=== PATIENT | female | born 1945 | race American Indian/Alaskan Native ===

== ENCOUNTER 2019-11-26 17:12 | Inpatient (IN) | payer MEDICARE ==
--- NOTE | 2019-11-26 18:44 | Emergency Department Report ---
- General Chief complaint: Weakness Stated complaint: GENERAL WEAKNESS POSS COVID EXPOSURE PUI?: Yes Time Seen by Provider: 11/26/19 18:20 Source: patient, family (son Thiago Lomeli), EMS Mode of arrival: Stretcher Limitations: Altered Mental Status - History of Present Illness Initial comments: This is a 74-year-old female with history of hypertension and diabetes mellitus who presents with altered mental status, shortness of breath, fever chills, body aches. Patient arrived via EMS. Her son Thiago Lomeli gave additional history. Her son called 911 after finding his mother incoherent. She appeared to have trouble breathing. He was very concerned when she answered the door without having on any clothes. Patient states that she has had subjective fever chills body aches shortness of breath sore throat for the past 1 to 2 days. She explained that her sister was recently tested positive for COVID-19. However her son was unable to confirm this information. She denies cough. She denies shortness of breath. Overall she feels generally unwell. MD Complaint: generalized weakness -: Gradual, days(s) (1-2 days prior) Location: generalized Severity: moderate Consistency: constant Improves with: none Worsens with: none Context: recent illness Associated Symptoms: fever/chills, myalgias, shortness of breath - Related Data Allergies Allergy/AdvReac Type Severity Reaction Status Date / Time No Known Allergies Allergy Unverified 11/26/19 19:22 ED Review of Systems ROS: Stated complaint: GENERAL WEAKNESS POSS COVID EXPOSURE Other details as noted in HPI Comment: All other systems reviewed and negative Constitutional: chills, fever, malaise ENT: throat pain Respiratory: shortness of breath. denies: cough Cardiovascular: denies: chest pain ED Past Medical Hx - Past Medical History Previous Medical History?: Yes Hx Hypertension: Yes Hx Diabetes: Yes - Surgical History Past Surgical History?: No - Social History Smoking Status: Never Smoker Substance Use Type: None ED Physical Exam - General Limitations: Altered Mental Status General appearance: alert, in no apparent distress - Head Head exam: Present: atraumatic, normocephalic - Eye Eye exam: Present: normal appearance - ENT ENT exam: Present: mucous membranes moist - Neck Neck exam: Present: normal inspection, full ROM - Respiratory Respiratory exam: Present: normal lung sounds bilaterally. Absent: respiratory distress, wheezes, rales, rhonchi - Cardiovascular Cardiovascular Exam: Present: regular rate, normal rhythm, normal heart sounds. Absent: systolic murmur, diastolic murmur, rubs, gallop - GI/Abdominal GI/Abdominal exam: Present: soft, normal bowel sounds. Absent: distended, tenderness, guarding, rebound - Extremities Exam Extremities exam: Present: normal inspection - Neurological Exam Neurological exam: Present: alert, oriented X3, other (Slow to respond,) - Psychiatric Psychiatric exam: Present: normal affect, normal mood - Skin Skin exam: Present: warm, dry, intact, normal color. Absent: rash ED Course Vital Signs 11/26/19 11/26/19 11/26/19 18:18 18:30 18:32 Temperature 99.2 F Pulse Rate 87 84 86 Respiratory 14 17 18 Rate Blood Pressure 149/66 149/66 Blood Pressure [Left] O2 Sat by Pulse 91 94 90 Oximetry 11/26/19 20:05 Temperature 98.4 F Pulse Rate 93 H Respiratory 22 Rate Blood Pressure Blood Pressure 135/60 [Left] O2 Sat by Pulse 95 Oximetry ED Medical Decision Making - Lab Data Result diagrams: 11/26/19 18:39 11/26/19 18:39 - Radiology Data Radiology results: report reviewed, image reviewed AP portable chest: My personal interpretation. I personally reviewed the image 1 view AP portable chest. Patient has multifocal infiltrates with predominance in the basilar regions, mild cardiomegaly - Medical Decision Making 1. Acute respiratory failure hypoxia due to suspected COVID-19 infection pneumonia. While laying semi-supine, oxygen saturation 88% on room air which is hypoxic. Patient was supported with oxygen via nasal cannula. IV antibiotics preemptively initiated. 2. Suspected COVID-19 Pneumonia: Inflammatory markers markedly elevated including d-dimer, ferritin, LDH, CRP 3. Acute encephalopathy due to delirium due to hypoxia. Patient has slow response to questions but she is alert and oriented x3. 4. Acute prerenal kidney injury reflective of current infection and possible vo lume contraction, IV fluid therapy initiated in the emergency department Patient is admitted stable condition for further treatment and evaluation. Critical Care Time: Yes Critical care time in (mins) excluding proc time.: 40 Critical care attestation.: If time is entered above; I have spent that time in minutes in the direct care of this critically ill patient, excluding procedure time. 40 minutes of critical care time excluding procedures were used in the care of the patient. I reviewed electronic record. I discussed treatment plan with the nursing team members at the bedside. I came immediately to the bedside upon patient's arrival to the treatment room. I kept the family members informed. Her and sons were available in the waiting room. I obtained additional history from family members. Also concern for imminent airway compromise with hypoxia upon arrival. Patient required multiple interventions and reassessments. ED Disposition Clinical Impression: Acute respiratory failure with hypoxia, Suspected COVID-19 virus infection, Acute encephalopathy, Prerenal acute renal failure Disposition: OP ADMIT IP TO THIS HOSP Is pt being admited?: Yes Does the pt Need Aspirin: No Condition: Stable Referrals: KOLBY PIPER MD [Primary Care Provider] - 3-5 Days
[2019-11-26 18:56] LABS: Basophils % (Auto) 0.8 % (0.0-1.8); Hemoglobin 12.8 gm/dl (10.1-14.3); Lymphocytes # (Auto) 1.3 K/mm3 (1.2-5.4); Lymphocytes % (Auto) 20.5 % (13.4-35.0); Mean Corpuscular HGB Conc 33 % (30-34); Mean Corpuscular Volume 95 fl (79-97); Monocytes # (Auto) 0.5 K/mm3 (0.0-0.8); Monocytes % (Auto) 8.8 % (0.0-7.3); Platelet Count 215 K/mm3 (140-440); Red Blood Count 4.09 M/mm3 (3.65-5.03); Red Cell Distribution Width 14.8 % (13.2-15.2)
--- NOTE | 2019-11-26 19:02 | XRay Report ---
Chest single view INDICATION: Dyspnea IMPRESSION: Moderate bilateral cardiopulmonary edema. No large pleural effusion. Signer Name: Niraj Diaz MD Signed: 11/26/2019 6:58 PM Workstation Name: [id number]
[2019-11-26 19:21] LABS: C-Reactive Protein 19.6 mg/dL (0.00-1.30)
[2019-11-26 19:22] LABS: Albumin 3.6 g/dL (3.9-5)
[2019-11-26] MEDS ORDERED: SODIUM CHLORIDE 0.9% 500 ML 500 ML IV ONE (19:57)
[2019-11-26] MEDS: cefTRIAXone/NS 2 GM/100 ML 2 GM/100 ML BAG IV SCH (20:05)
[2019-11-26] MEDS: AZITHROMYCIN 500 MG in SODIUM CHLORIDE 0.9% 250ML 250 ML IV SCH (21:10)
[2019-11-26] MEDS ORDERED: ONDANSETRON 4 MG/2 ML INJ IV PRN (22:16)
[2019-11-26] MEDS ORDERED: FUROSEMIDE 40 MG/4 ML INJ IV ONE (22:24)
[2019-11-26] MEDS ORDERED: FUROSEMIDE 20 MG/2 ML INJ ONE (22:41)
--- NOTE | 2019-11-27 06:00 | History and Physical Report ---
History of Present Illness Date of examination: 11/26/19 Date of admission: 11/26/19 21:42 Chief complaint: Weakness History of present illness: 74 year old female presenting with weakness,altered mental status and sore throat . Past History Past Medical History: diabetes, hypertension Past Surgical History: No surgical history Social history: no significant social history Family history: no significant family history Medications and Allergies Allergies Allergy/AdvReac Type Severity Reaction Status Date / Time No Known Allergies Allergy Unverified 11/26/19 19:22 Active Meds: Active Medications Acetaminophen (Tylenol) 650 mg PO Q4H PRN PRN Reason: Fever >101 Heparin Sodium (Porcine) (Heparin) 5,000 unit SUB-Q Q12HR MYRON Ceftriaxone Sodium (Rocephin/Ns 2 Gm/100 Ml) 2 gm in 100 mls @ 200 mls/hr IV Q24HR MYRON; Protocol Last Admin: 11/26/19 20:05 Dose: 200 mls/hr Documented by: Azithromycin 500 mg/ Sodium (Chloride) 250 mls @ 250 mls/hr IV Q24HR MYRON; Geetha col Last Admin: 11/26/19 21:10 Dose: 250 mls/hr Documented by: Ondansetron HCl (Zofran) 4 mg IV Q8H PRN PRN Reason: Nausea And Vomiting Review of Systems Constitutional: fever, chills, weakness, no weight loss, no weight gain, no sweats, no night sweats, no fatigue, no malaise, no lethargy Eyes: bilateral: other (NO BILATERAL EYE SYMPTOM) Ears, nose, mouth and throat: no ear pain, no nasal congestion, no nasal discharge, no sinus pressure, no dental pain, no mouth pain, no hoarseness, no sore throat, no swelling in mouth Breasts: deferred Cardiovascular: shortness of breath, no chest pain, no orthopnea, no palpitations, no rapid/irregular heart beat, no syncope, no lightheadedness Respiratory: shortness of breath, no cough, no cough with sputum, no excessive sputum, no hemoptysis, no dyspnea on exertion, no congestion Gastrointestinal: no abdominal pain, no nausea, no vomiting, no diarrhea, no constipation, no change in bowel habits, no hematemesis, no hematochezia, no loss of appetite Genitourinary Female: no Menstruation: postmenopausal Rectal: no pain, no itching Musculoskeletal: no neck stiffness, no neck pain, no shooting arm pain, no arm numbness/tingling, no low back pain, no shooting leg pain, no leg numbness/tingling, no morning stiffness, no muscle weakness, no muscle cramps, no myalgias Integumentary: no rash, no pruritis, no redness, no sores, no wounds, no jaundice, no boils, no lesions, no darkening of skin, no depigmentation, no acne Neurological: weakness, change in mentation, confusion, no paralysis, no parathesias, no numbness, no tingling, no seizures, no syncope, no tremors, no vertigo, no headaches, no migraines, no convulsions, no aphasia, no change in speech, no sensory deficit, no double vision Psychiatric: no anxiety, no memory loss, no change in sleep habits, no sleep disturbances, no insomnia, no change in appetite, no change in libido, no suicidal ideation Endocrine: no cold intolerance, no heat intolerance, no polyuria, no nocturia Hematologic/Lymphatic: no lymphadenopathy, no lymphedema Exam - Constitutional Vitals: Temp Pulse Resp BP Pulse Ox 99.4 F 86 18 146/69 94 11/27/19 00:33 11/27/19 00:33 11/27/19 00:33 11/27/19 00:33 11/27/19 00:33 General appearance: Present: no acute distress - EENT Eyes: Present: PERRL, EOM intact ENT: hearing intact, clear oral mucosa - Neck Neck: Present: supple, normal ROM - Respiratory Respiratory effort: normal - Cardiovascular Rhythm: regular Heart Sounds: Present: S1 & S2. Absent: gallop, systolic murmur, diastolic murmur - Extremities Extremities: no ischemia, No edema Peripheral Pulses: within normal limits - Abdominal General gastrointestinal: Present: soft, non-tender, non-distended. Absent: tender, distended, rigid, hepatomegaly, splenomegaly Female genitourinary: Present: deferred - Rectal Rectal Exam: deferred - Integumentary Integumentary: Present: clear, warm, dry - Musculoskeletal Musculoskeletal: strength equal bilaterally - Psychiatric Psychiatric: appropriate mood/affect HEART Score - HEART Score Risk factors: 1-2 risk factors Troponin: Troponin T < 0.010 ng/mL (0.00-0.029) 11/27/19 00:23 Troponin: < normal limit Results - Labs CBC & Chem 7: 11/26/19 18:39 11/26/19 18:39 Labs: Laboratory Last Values WBC 6.1 K/mm3 (4.5-11.0) 11/26/19 18:39 RBC 4.09 M/mm3 (3.65-5.03) 11/26/19 18:39 Hgb 12.8 gm/dl (10.1-14.3) 11/26/19 18:39 Hct 39.0 % (30.3-42.9) 11/26/19 18:39 MCV 95 fl (79-97) 11/26/19 18:39 MCH 31 pg (28-32) 11/26/19 18:39 MCHC 33 % (30-34) 11/26/19 18:39 RDW 14.8 % (13.2-15.2) 11/26/19 18:39 Plt Count 215 K/mm3 (140-440) 11/26/19 18:39 Lymph % (Auto) 20.5 % (13.4-35.0) 11/26/19 18:39 [place] % (Auto) 8.8 % (0.0-7.3) H 11/26/19 18:39 Eos % (Auto) 0.0 % (0.0-4.3) 11/26/19 18:39 Baso % (Auto) 0.8 % (0.0-1.8) 11/26/19 18:39 Lymph # 1.3 K/mm3 (1.2-5.4) 11/26/19 18:39 [place] # 0.5 K/mm3 (0.0-0.8) 11/26/19 18:39 Eos # 0.0 K/mm3 (0.0-0.4) 11/26/19 18:39 Baso # 0.0 K/mm3 (0.0-0.1) 11/26/19 18:39 Seg Neutrophils % 69.9 % (40.0-70.0) 11/26/19 18:39 Seg Neutrophils # 4.3 K/mm3 (1.8-7.7) 11/26/19 18:39 D-Dimer 2469.59 ng/mlDDU (0-234) H 11/26/19 18:39 Sodium 134 mmol/L (137-145) L 11/26/19 18:39 Potassium 3.4 mmol/L (3.6-5.0) L 11/26/19 18:39 Chloride 93.9 mmol/L (98-107) L 11/26/19 18:39 Carbon Dioxide 24 mmol/L (22-30) 11/26/19 18:39 Anion Gap 20 mmol/L 11/26/19 18:39 BUN 43 mg/dL (7-17) H 11/26/19 18:39 Creatinine 1.5 mg/dL (0.6-1.2) H 11/26/19 18:39 Estimated GFR 41 ml/min 11/26/19 18:39 BUN/Creatinine Ratio 29 % 11/26/19 18:39 Glucose 111 mg/dL (65-100) H 11/26/19 18:39 Glucose 112 mg/dL (65-100) H 11/26/19 18:39 Lactic Acid 2.00 mmol/L (0.7-2.0) 11/27/19 00:23 Calcium 9.0 mg/dL (8.4-10.2) 11/26/19 18:39 Ferritin 752.8 ng/mL (10.0-200.0) H 11/26/19 18:39 Total Bilirubin 0.80 mg/dL (0.1-1.2) 11/26/19 18:39 AST 36 units/L (5-40) 11/26/19 18:39 ALT 15 units/L (7-56) 11/26/19 18:39 Alkaline Phosphatase 35 units/L (35-129) 11/26/19 18:39 Lactate Dehydrogenase 364 units/L (91-180) H 11/26/19 18:39 Troponin T < 0.010 ng/mL (0.00-0.029) 11/27/19 00:23 C-Reactive Protein 19.60 mg/dL (0.00-1.30) H 11/26/19 18:39 Total Protein 7.6 g/dL (6.3-8.2) 11/26/19 18:39 Albumin 3.6 g/dL (3.9-5) L 11/26/19 18:39 Albumin/Globulin Ratio 0.9 % 11/26/19 18:39 Microbiology: Microbiology 11/26/19 18:39 Peripheral/Venous Blood Culture - Preliminary Culture in Progress 11/26/19 18:48 Peripheral/Venous Blood Culture - Preliminary Culture in Progress Sanders/IV: IV Catheter Type [Right INT / Saline Lock Forearm] Assessment and Plan - Patient Problems (1) JOSEPH (acute kidney injury) Current Visit: Yes Status: Acute Plan to address problem: I. I.V NORMAL SALINE 2. NEPHROLOGY CONSULT (2) Hypokalemia Current Visit: Yes Status: Acute Plan to address problem: KCL REPLACEMENT (3) Suspected COVID-19 virus infection Current Visit: Yes Status: Acute Plan to address problem: 1. COVID -19 TESTING 2. DROPLET AND CONTACT ISOLATION 3. INFECTIOUS DISEASE CONSULT 4. I.V ZITHROMAX ANTIBIOTIC 5. I.V ROCEPHIN ANTIBIOTIC
[2019-11-27] MEDS: cefTRIAXone/NS 2 GM/100 ML 2 GM/100 ML BAG IV SCH (09:12)
[2019-11-27] MEDS: HEPARIN 5,000 UNIT/1 ML VIAL SUB-Q SCH ×2 (09:12→22:00)
[2019-11-27] MEDS ORDERED: AZITHROMYCIN 500 MG in SODIUM CHLORIDE 0.9% 250ML 250 ML IV SCH (10:00)
--- NOTE | 2019-11-27 13:08 | Event Note ---
Date: 11/27/19 Patient seen and examined Lab results reviewed Chest x-ray reviewed She is oriented Complains of dry cough and generalized Apparently had fever and chills prior to admission but denies any fever since admission O2 sat 96% on 3 L COVID 19 test results pending but signs and symptoms consistent with pneumonitis Continue Decadron for now ID consult COVID-19 Test results are available Will initiate insulin sliding scale coverage and start on diet
[2019-11-27] MEDS: AZITHROMYCIN 500 MG in SODIUM CHLORIDE 0.9% 250ML 250 ML IV SCH (13:09)
[2019-11-27] MEDS: INSULIN LISPRO 100 UNIT/ML VIAL 3 mL SUB-Q SCH ×3 (13:10→22:32)
--- NOTE | 2019-11-27 14:51 | Consultation ---
History of Present Illness - Reason for Consult Consult date: 11/27/19 acute renal failure Requesting physician: DARIEN CROWELL - History of Present Illness This is a 74 F patient with past medical history of hypertension, Type 2 DM, who presents to ER with shortness of breath, fever, chills, diffuse body aches. As per pt's son pt also developed altered mental status, for which EMS was called. Reportedly pt's sister was recently tested positive for COVID19. in ER pt was hypoxic with O2 as low as 88%, labs showed elevated inflammatory parameters incl. D-dimer > 2469, ferritin > 752, LDH > 360, CRP > 19. CXR showed increased b/l interstitial infiltrates pulmonary edema vs pneumonitis. pt is admitted for rule out/treatment of COVID19. Labs showed increased BUN/Cr at 43/1.5mg/dl along with mild hypokalemia and mild hyponatremia, for which renal consult is request ed. pt denies previous renal disease, no recent NSAIDS, IV contrast exposure reported Past History Past Medical History: diabetes, hypertension Past Surgical History: No surgical history Social history: no significant social history Family history: no significant family history Medications and Allergies Allergies Allergy/AdvReac Type Severity Reaction Status Date / Time No Known Allergies Allergy Unverified 11/26/19 19:22 Active Meds: Active Medications Acetaminophen (Tylenol) 650 mg PO Q4H PRN PRN Reason: Fever >101 Heparin Sodium (Porcine) (Heparin) 5,000 unit SUB-Q Q12HR MYRON Last Admin: 11/27/19 09:12 Dose: 5,000 unit Documented by: Ceftriaxone Sodium (Rocephin/Ns 2 Gm/100 Ml) 2 gm in 100 mls @ 200 mls/hr IV Q24HR MYRON; Protocol Last Admin: 11/27/19 09:12 Dose: 200 mls/hr Documented by: Azithromycin 500 mg/ Sodium (Chloride) 250 mls @ 250 mls/hr IV Q24HR MYRON; Protocol Last Admin: 11/27/19 13:09 Dose: 250 mls/hr Documented by: Insulin Human Lispro (Humalog) 0 unit SUB-Q ACHS MYRON; Protocol Last Admin: 11/27/19 13:10 Dose: 2 unit Documented by: Ondansetron HCl (Zofran) 4 mg IV Q8H PRN PRN Reason: Nausea And Vomiting Review of Systems Constitutional: weakness, malaise Respiratory: cough with sputum, shortness of breath, dyspnea on exertion Musculoskeletal: myalgias Exam - Vital Signs Vital signs: Vital Signs Pulse Resp Pulse Ox 87 14 91 11/26/19 18:18 11/26/19 18:18 11/26/19 18:18 - General Appearance General appearance: well-developed, well-nourished, appears stated age EENT: ATNC, PERRL, mucous membranes moist Neck: Present: neck supple Respiratory: Rales, Ronchi Heart: regular, S1S2 Gastrointestinal: Present: normoactive bowel sounds Integumentary: no rash, other (no edema ) Neurologic: no focal deficit, alert and oriented x3, strength 5/5, CN 3-12 intact Psychiatric: mood/affect appropriate, cooperative Results - Lab Results 11/26/19 18:39 11/26/19 18:39 Most recent lab results Calcium 9.0 mg/dL (8.4-10.2) 11/26/19 18:39 Assessment and Plan - Patient Problems (1) JOSEPH (acute kidney injury) Current Visit: Yes Status: Acute Plan to address problem: likely pre-renal azotemia in the setting of COVID 19 pneumonia. check UA, urine lytes, urine P/Cr ratio. Given evidence of possible pulmonary edema and hypoxia will hold off on maintenance IV fluid. pt was given IV lasix x 1 dose in ER. Strict I/Os. Avoid further nephrotoxins, NSAIDs, will monitor lytes and renal parameters closely and make further recommendations. (2) Acute respiratory failure with hypoxia Current Visit: Yes Status: Acute Plan to address problem: likely 2/2 Covid19 pneumonia, COVID19 test positive. cont O2 3L via NC (3) Hypokalemia Current Visit: Yes Status: Acute Plan to address problem: Supplement with KDur 40meq x 1 dose (4) Hyponatremia Current Visit: Yes Status: Acute Plan to address problem: likely SIADH in the setting of COIVD19 pneumonia. mild, asymptomatic. monitor BMP (5) Suspected COVID-19 virus infection Current Visit: Yes Status: Acute Plan to address problem: COIVD19 test positive, follow ID recommendations.
[2019-11-27] MEDS ORDERED: REMDESIVIR 200 MG in SODIUM CHLORIDE 0.9% 250ML 250 ML IV ONE (17:30)
[2019-11-27] MEDS ORDERED: REMDESIVIR 100 MG VIAL IV ONE (17:30)
--- NOTE | 2019-11-27 17:30 | Progress Note ---
Assessment and Plan Cultures: Blood culture 11/26/2019 pending A/P: 74-year-old female past medical history hypertension, diabetes, admitted with COVID-19 #Severe COVID-19 pneumonia: Patient presented with 2 days of symptoms, chest x- ray with edema versus infiltrates. #Acute hypoxemic respiratory failure: Likely secondary to COVID-19 infection. Currently on 3 L nasal cannula #Diabetes: tight glycemic control for best outcomes. #Obesity: Associated with worse COVID-19 outcomes. Recs: -Continue Dexamethasone 6 mg IV/PO daily for 10 days -Recommend Remdesivir, pharmacy consulted. Follow renal and liver function. -Obtain daily inflammatory markers - ferritin, Ddimer, CRP, LDH -Anticoagulation per protocol Thank you for the consult, we will continue to follow. Catie Grover MD [facility] ([facility] M: [phone] O: [phone] F: [phone] Subjective Date of service: 11/27/19 Interval history: 74-year-old female past medical history hypertension, diabetes presented to the hospital with altered mental status, shortness of breath, fevers, chills, myalgias. She is brought to the hospital via ambulance. Her son with a check on her, and found her with dyspnea and to answer the door without any clothes on. Prior to that she had complained of myalgias and shortness of breath for approximately 2 days prior. Her sister had recently tested positive COVID-19. Afebrile since admission with a white count of 6. Currently on ceftriaxone and azithromycin. COVID-19 testing positive. Procalcitonin 0.22 blood cultures currently pending. Imaging personally reviewed: Chest x-ray: Bilateral pulmonary edema. Review of Systems: Bold if positive, otherwise negative General: fevers, chills, rigors HEENT: visual disturbance, diplopia, eye pain Respiratory: cough, sputum, hemoptysis, shortness of breath Cardiovascular: chest pain, syncope Gastrointestinal: nausea, vomiting, diarrhea, abdominal pain Genitourinary: dysuria, hematuria, flank pain Musculoskeletal: neck pain, back pain, joint pain, edema Neurologic: headaches, seizures Hematologic: easy bruising or bleeding Endocrine: night sweats, acute weight loss Skin: rash, jaundice, redness Psychiatric: suicidal, homicidal ideation Objective - Exam Narrative Exam: Physical exam deferred due to PPE conservation strategy. Please refer to primary team's note. - Constitutional Vitals: Vital Signs Temp Pulse Resp BP Pulse Ox 97.3 F L 80 20 144/55 92 11/27/19 11:37 11/27/19 11:37 11/27/19 11:37 11/27/19 11:37 11/27/19 11:37 Temperature -Last 24 Hours Temperature 97.3 F Temperature 99.4 F Temperature 98.4 F Temperature 99.2 F - Labs CBC & Chem 7: 11/26/19 18:39 11/26/19 18:39 Labs: Abnormal lab results 11/26/19 11/26/19 11/26/19 Range/Units 18:39 18:39 18:39 [place] % (Auto) 8.8 H (0.0-7.3) % D-Dimer 2469.59 H (0-234) ng/mlDDU Sodium 134 L (137-145) mmol/L Potassium 3.4 L (3.6-5.0) mmol/L Chloride 93.9 L (98-107) mmol/L BUN 43 H (7-17) mg/dL Creatinine 1.5 H (0.6-1.2) mg/dL Glucose 112 H (65-100) mg/dL POC Glucose (70-105) Lactic Acid (0.7-2.0) mmol/L Ferritin (10.0-200.0) ng/mL Lactate Dehydrogenase (91-180) units/L C-Reactive Protein (0.00-1.30) mg/dL Albumin 3.6 L (3.9-5) g/dL Coronavirus (PCR) (Negative) 11/26/19 11/26/19 11/26/19 Range/Units 18:39 18:39 21:09 [place] % (Auto) (0.0-7.3) % D-Dimer (0-234) ng/mlDDU Sodium (137-145) mmol/L Potassium (3.6-5.0) mmol/L Chloride (98-107) mmol/L BUN (7-17) mg/dL Creatinine (0.6-1.2) mg/dL Glucose 111 H (65-100) mg/dL POC Glucose (70-105) Lactic Acid 2.50 H* (0.7-2.0) mmol/L Ferritin 752.8 H (10.0-200.0) ng/mL Lactate Dehydrogenase 364 H (91-180) units/L C-Reactive Protein 19.60 H (0.00-1.30) mg/dL Albumin (3.9-5) g/dL Coronavirus (PCR) (Negative) 11/27/19 11/27/19 Range/Units 11:52 Unknown [place] % (Auto) (0.0-7.3) % D-Dimer (0-234) ng/mlDDU Sodium (137-145) mmol/L Potassium (3.6-5.0) mmol/L Chloride (98-107) mmol/L BUN (7-17) mg/dL Creatinine (0.6-1.2) mg/dL Glucose (65-100) mg/dL POC Glucose 152 H (70-105) Lactic Acid (0.7-2.0) mmol/L Ferritin (10.0-200.0) ng/mL Lactate Dehydrogenase (91-180) units/L C-Reactive Protein (0.00-1.30) mg/dL Albumin (3.9-5) g/dL Coronavirus (PCR) Positive A (Negative)
[2019-11-28] MEDS: AZITHROMYCIN 500 MG in SODIUM CHLORIDE 0.9% 250ML 250 ML IV SCH (09:35)
[2019-11-28] MEDS: cefTRIAXone/NS 2 GM/100 ML 2 GM/100 ML BAG IV SCH (09:35)
[2019-11-28] MEDS: HEPARIN 5,000 UNIT/1 ML VIAL SUB-Q SCH ×2 (09:36→21:37)
[2019-11-28] MEDS: INSULIN LISPRO 100 UNIT/ML VIAL 3 mL SUB-Q SCH ×4 (09:39→22:50)
[2019-11-28 10:37] LABS: Hematocrit 38.3 % (30.3-42.9); Hemoglobin 12.9 gm/dl (10.1-14.3); Mean Corpuscular HGB Conc 34 % (30-34); Mean Corpuscular Volume 95 fl (79-97); Platelet Count 250 K/mm3 (140-440); Red Blood Count 4.05 M/mm3 (3.65-5.03); Red Cell Distribution Width 14.6 % (13.2-15.2)
--- NOTE | 2019-11-28 10:53 | Progress Note ---
Subjective Date of service: 11/28/19 Interval history: Ozzy wick is a 74 F AAF with past medical history of hypertension, Type 2 DM, who presents to ER with shortness of breath, fever, chills, diffuse body aches. As per pt's son pt also developed altered mental status, for which EMS was called. Reportedly pt's sister was recently tested positive for COVID19. in ER pt was hypoxic with O2 as low as 88%, labs showed elevated inflammatory parameters incl. D-dimer > 2469, ferritin > 752, LDH > 360, CRP > 19. CXR showed increased b/l interstitial infiltrates pulmonary edema vs pneumonitis. 11/27 patient is alert and oriented and not in any acute distress, offers no specific complaints except mild dry cough. She denies any shortness of breath or chest pain. Denies any fever or chills. Lab results reviewed. ID and nephrology consult notes reviewed and appreciated. COVID-19 pneumonia ID note reviewed Started on Remdesivir Inflammatory markers results reviewed Will start the patient on Decadron 6 mg daily Oxygen saturation is greater than 96% on oxygen via nasal cannula Patient's family was contacted and he was updated about patient's results and answered all his questions Acute hypoxic respiratory failure Secondary to #1 Continue oxygen via nasal cannula History of type 2 diabetes Continue insulin sliding scale coverage History of hypertension Not on home medication BP is fair We will monitor off medication Objective - Constitutional Vitals: Vital Signs - 12hr 11/28/19 04:56 Temperature 97.8 F Pulse Rate 78 Respiratory 20 Rate Blood Pressure 142/46 O2 Sat by Pulse 95 Oximetry General appearance: Present: no acute distress, well-nourished - EENT Eyes: PERRL, EOM intact ENT: hearing intact, clear oral mucosa - Neck Neck: supple, normal ROM, no masses or JVD - Respiratory Respiratory effort: normal Respiratory: bilateral: CTA - Cardiovascular Rhythm: regular Heart Sounds: Present: S1 & S2 Extremities: No edema - Gastrointestinal General gastrointestinal: Present: soft, non-tender. Absent: hepatomegaly, splenomegaly Rectal Exam: deferred - Genitourinary Female genitourinary: deferred - Integumentary Integumentary: clear - Musculoskeletal Musculoskeletal: strength equal bilaterally - Neurologic Neurologic: no focal deficits - Psychiatric Psychiatric: appropriate mood/affect - Labs CBC & Chem 7: 11/28/19 09:37 11/26/19 18:39 Labs: Abnormal lab results 11/27/19 11/27/19 11/27/19 Range/Units 11:52 17:24 22:33 POC Glucose 152 H 156 H 123 H (70-105) Coronavirus (PCR) (Negative) 11/27/19 11/28/19 Range/Units Unknown 08:14 POC Glucose 153 H (70-105) Coronavirus (PCR) Positive A (Negative) HEART Score - HEART Score Risk factors: 1-2 risk factors Troponin: Troponin T 0.012 ng/mL (0.00-0.029) 11/27/19 08:10 Troponin: < normal limit
[2019-11-28 10:58] LABS: C-Reactive Protein 21.4 mg/dL (0.00-1.30); Calcium 8.7 mg/dL (8.4-10.2)
[2019-11-28] MEDS: ACETAMINOPHEN 325 MG TAB PO PRN (11:16)
[2019-11-28] MEDS: DEXAMETHASONE 4 MG TAB PO SCH (11:17)
--- NOTE | 2019-11-28 11:26 | Progress Note ---
Assessment and Plan - Patient Problems (1) JOSEPH (acute kidney injury) Current Visit: Yes Status: Acute Plan to address problem: likely pre-renal azotemia in the setting of COVID 19 pneumonia. check UA, urine lytes, urine P/Cr ratio. Renal function marginally improved. Given evidence of possible pulmonary edema and hypoxia will hold off on maintenance IV fluid, strict I/Os. Avoid further nephrotoxins, NSAIDs, will monitor lytes and renal parameters c losely and make further recommendations. (2) Acute respiratory failure with hypoxia Current Visit: Yes Status: Acute Plan to address problem: 2/2 Covid19 pneumonia, cont O2 4L via [place]. initiated on dexamethasone/remdesivir. on Ceftriaxone, azithromycin for treatment for possible superimposed bacterial P NA (3) Hypokalemia Current Visit: Yes Status: Acute Plan to address problem: Supplement with KDur 40meq x 1 dose (4) Hyponatremia Current Visit: Yes Status: Acute Plan to address problem: likely SIADH in the setting of COIVD19 pneumonia. mild, asymptomatic. monitor BMP (5) Suspected COVID-19 virus infection Current Visit: Yes Status: Acute Plan to address problem: COIVD19 test positive, follow ID recommendations. Subjective Date of service: 11/28/19 Principal diagnosis: JOSEPH, COVID19 Interval history: no events overnight. no bedside exam d/t PPE preservation Objective - Exam Narrative Exam: Exam deferred d/t PPE preservation - Vital Signs Vital signs: Vital Signs - 12hr 11/28/19 04:56 Temperature 97.8 F Pulse Rate 78 Respiratory 20 Rate Blood Pressure 142/46 O2 Sat by Pulse 95 Oximetry - Lab 11/28/19 09:37 11/28/19 09:37 Most recent lab results Calcium 8.7 mg/dL (8.4-10.2) 11/28/19 09:37 Medications & Allergies - Medications Allergies/Adverse Reactions: Allergies No Known Allergies Allergy (Unverified 11/26/19 19:22) Active Medications: Generic Name Dose Route Start Last Admin Trade Name Freq PRN Reason Stop Dose Admin Acetaminophen 650 mg 11/26/19 22:16 11/28/19 11:16 Tylenol PO 650 mg Q4H PRN Administration Fever >101 Dexamethasone 6 mg 11/28/19 11:00 11/28/19 11:17 Decadron PO 6 mg DAILY MYRON Administration Heparin Sodium (Porcine) 5,000 unit 11/27/19 10:00 11/28/19 09:36 Heparin SUB-Q 5,000 unit Q12HR MYRON Administration Ceftriaxone Sodium 2 gm in 100 mls @ 200 mls/hr 11/26/19 19:00 11/28/19 09:35 Rocephin/Ns 2 Gm/100 Ml IV 200 mls/hr Q24HR MYRON Administration Protocol Azithromycin 500 mg/ Sodium 250 mls @ 250 mls/hr 11/26/19 19:00 11/28/19 09:35 Chloride IV 250 mls/hr Q24HR MYRON Administration Protocol REMDESIVIR 100 mg/ Sodium 250 mls @ 500 mls/hr 11/28/19 21:00 Chloride IV 12/01/19 21:29 Q24HR@2100 [facility] Insulin Human Lispro 0 unit 11/27/19 11:30 11/28/19 09:39 Humalog SUB-Q 2 unit ACHS MYRON Administration Protocol Ondansetron HCl 4 mg 11/26/19 22:16 Zofran IV Q8H PRN Nausea And Vomiting
[2019-11-28 20:10] LABS: Bilirubin,Urine NEG (Negative); Blood,Urine SM (Negative); Color,Urine Yellow (Yellow); Urobilinogen,Urine < 2.0 mg/dL (<2.0)
[2019-11-28 20:19] LABS: Creatinine,Urine 97.4 mg/dL (0.1-20.0)
[2019-11-28] MEDS: SODIUM CHLORIDE 0.9% 50 ML IVPB IV SCH (21:37)
[2019-11-28] MEDS: REMDESIVIR 100 MG in SODIUM CHLORIDE 0.9% 250ML 250 ML IV SCH (21:37)
[2019-11-29] MEDS: ACETAMINOPHEN 325 MG TAB PO PRN ×4 (00:56→23:16)
[2019-11-29 08:27] LABS: Hematocrit 38.4 % (30.3-42.9); Hemoglobin 12.6 gm/dl (10.1-14.3); Mean Corpuscular HGB Conc 33 % (30-34); Mean Corpuscular Volume 95 fl (79-97); Platelet Count 332 K/mm3 (140-440); Red Blood Count 4.07 M/mm3 (3.65-5.03); Red Cell Distribution Width 14.5 % (13.2-15.2)
[2019-11-29 08:41] LABS: BUN/Creatinine Ratio 23; Blood Urea Nitrogen 23 mg/dL (7-17); Calcium 9.4 mg/dL (8.4-10.2); Hemolysis Index 2
[2019-11-29] MEDS: DEXAMETHASONE 4 MG TAB PO SCH (09:16)
[2019-11-29] MEDS: cefTRIAXone/NS 2 GM/100 ML 2 GM/100 ML BAG IV SCH (09:16)
[2019-11-29] MEDS: HEPARIN 5,000 UNIT/1 ML VIAL SUB-Q SCH (09:17)
[2019-11-29] MEDS: INSULIN LISPRO 100 UNIT/ML VIAL 3 mL SUB-Q SCH ×4 (09:18→23:54)
--- NOTE | 2019-11-29 09:56 | Progress Note ---
Assessment and Plan - Patient Problems (1) JOSEPH (acute kidney injury) Current Visit: Yes Status: Acute Plan to address problem: Kidney function has improved. Follow-up periodically (2) Pneumonia due to COVID-19 virus Current Visit: Yes Status: Acute Plan to address problem: Continue management as per infectious disease -continue Decadron, anticoagulation, Remdesevir. Trend inflammatory markers. (3) Acute respiratory failure with hypoxia Current Visit: Yes Status: Acute Plan to address problem: Respiratory status has improved. Continue management (4) Hypokalemia Current Visit: Yes Status: Acute Plan to address problem: Potassium is now replete. Follow-up levels (5) Hyponatremia Current Visit: Yes Status: Acute Plan to address problem: Sodium has improved. Follow-up Subjective Date of service: 11/29/19 Principal diagnosis: JOSEPH, COVID19 Interval history: Patient was not examined at bedside today due to PPE conservation. Chart reviewed and events noted Objective - Exam Narrative Exam: Patient was not examined at bedside today due to PPE conservation. - Vital Signs Vital signs: Vital Signs - 12hr 11/28/19 11/29/19 11/29/19 23:00 00:56 01:56 Temperature Pulse Rate Respiratory 20 20 18 Rate Blood Pressure O2 Sat by Pulse 96 Oximetry 11/29/19 06:03 Temperature 97.7 F Pulse Rate 63 Respiratory 18 Rate Blood Pressure 157/70 O2 Sat by Pulse 94 Oximetry - Lab 11/29/19 07:49 11/29/19 07:48 Most recent lab results Calcium 9.4 mg/dL (8.4-10.2) 11/29/19 07:48 Urine Creatinine 97.4 mg/dL (0.1-20.0) H 11/28/19 Unknown Urine Sodium 23 mmol/L 11/28/19 Unknown Urine Total Protein 27 mg/dL (5-11.8) H 11/28/19 Unknown Medications & Allergies - Medications Allergies/Adverse Reactions: Allergies No Known Allergies Allergy (Unverified 11/26/19 19:22) Home Medications: Home Medications Medication Instructions Recorded Confirmed Last Taken Type No Known Home Medications [No 11/28/19 11/28/19 Unknown History Reported Home Medications] Active Medications: Generic Name Dose Route Start Last Admin Trade Name Freq PRN Reason Stop Dose Admin Acetaminophen 650 mg 11/26/19 22:16 11/29/19 09:17 Tylenol PO 650 mg Q4H PRN Administration Fever >101 Azithromycin 500 mg 11/29/19 10:00 11/29/19 09:17 Zithromax PO 11/30/19 10:01 500 mg QDAY MYRON Administration Dexamethasone 6 mg 11/28/19 11:00 11/29/19 09:16 Decadron PO 12/07/19 10:01 6 mg DAILY MYRON Administration Heparin Sodium (Porcine) 5,000 unit 11/27/19 10:00 11/29/19 09:17 Heparin SUB-Q 5,000 unit Q12HR MYRON Administration Ceftriaxone Sodium 2 gm in 100 mls @ 200 mls/hr 11/26/19 19:00 11/29/19 09:16 Rocephin/Ns 2 Gm/100 Ml IV 11/30/19 18:59 200 mls/hr Q24HR MYRON Administration Protocol REMDESIVIR 100 mg/ Sodium 250 mls @ 500 mls/hr 11/28/19 21:00 11/28/19 21:37 Chloride IV 12/01/19 21:29 500 mls/hr Q24HR@2100 MYRON Administration Insulin Human Lispro 0 unit 11/27/19 11:30 11/29/19 09:18 Humalog SUB-Q 3 unit ACHS MYRON Administration Protocol Ondansetron HCl 4 mg 11/26/19 22:16 Zofran IV Q8H PRN Nausea And Vomiting Sodium Chloride 50 ml 11/28/19 21:00 11/28/19 21:37 Nacl 0.9% IV 12/01/19 21:01 50 ml Q24HR@2100 MYRON Administration
[2019-11-29] MEDS ORDERED: AZITHROMYCIN 250 MG TAB PO SCH (10:00)
[2019-11-29] MEDS: ENOXAPARIN 60 MG/0.6 ML INJ SUB-Q SCH ×2 (13:45→22:03)
--- NOTE | 2019-11-29 14:46 | Progress Note ---
Assessment and Plan Cultures: Blood culture 11/26/2019 negative COVID PCR: positive A/P: 74-year-old female past medical history hypertension, diabetes, admitted with COVID-19 #Severe COVID-19 pneumonia: Patient presented with 2 days of symptoms, chest x- ray with edema versus infiltrates. #Acute hypoxemic respiratory failure: Likely secondary to COVID-19 infection. Currently on 3-4 L nasal cannula #Diabetes: tight glycemic control for best outcomes. #Obesity: Associated with worse COVID-19 outcomes. Recs: -Continue Dexamethasone 6 mg IV/PO daily for 10 days, D3 -Continue Remdesivir, D2 of 5. Follow renal and liver function. -monitor inflammatory markers - ferritin, Ddimer, CRP, LDH -Anticoagulation per protocol -Abx d/alyse Taj Mcarthur MD, FACP [facility] C: [phone] O: [phone] F: [phone] Subjective Date of service: 11/29/19 Principal diagnosis: JOSEPH, COVID19 Interval history: No fever. Remains on oxygen by [place]. Objective - Exam Narrative Exam: Physical Exam (reviewed in chart due to PPE conservation) Constitutional: limited due to PPE conservation strategy Head, Ears, Nose: limited due to PPE conservation strategy Eyes: limited due to PPE conservation strategy Neck: limited due to PPE conservation strategy Oral: limited due to PPE conservation strategy Cardiovascular: limited due to PPE conservation strategy Respiratory: limited due to PPE conservation strategy GI: limited due to PPE conservation strategy Musculoskeletal: limited due to PPE conservation strategy Skin: limited due to PPE conservation strategy Hem/Lymphatic: limited due to PPE conservation strategy Psych: limited due to PPE conservation strategy Neurological: limited due to PPE conservation strategy - Constitutional Vitals: Vital Signs Temp Pulse Resp BP Pulse Ox 97.7 F 63 20 157/70 97 11/29/19 06:03 11/29/19 06:03 11/29/19 10:00 11/29/19 06:03 11/29/19 10:00 Temperature -Last 24 Hours Temperature 97.7 F Temperature 97.5 F Temperature 97.9 F - Labs CBC & Chem 7: 11/29/19 07:49 11/29/19 07:48 Labs: Abnormal lab results 11/28/19 11/28/19 11/28/19 Range/Units 17:05 23:06 Unknown D-Dimer (0-234) ng/mlDDU BUN (7-17) mg/dL Glucose (65-100) mg/dL POC Glucose 279 H 313 H (70-105) Ferritin (10.0-200.0) ng/mL C-Reactive Protein (0.00-1.30) mg/dL Urine Creatinine 97.4 H (0.1-20.0) mg/dL Urine Total Protein 27 H (5-11.8) mg/dL 11/29/19 11/29/19 11/29/19 Range/Units 07:48 07:48 07:48 D-Dimer 6439.97 H (0-234) ng/mlDDU BUN 23 H (7-17) mg/dL Glucose 237 H (65-100) mg/dL POC Glucose (70-105) Ferritin 897.1 H (10.0-200.0) ng/mL C-Reactive Protein 15.40 H (0.00-1.30) mg/dL Urine Creatinine (0.1-20.0) mg/dL Urine Total Protein (5-11.8) mg/dL 11/29/19 11/29/19 Range/Units 07:54 13:41 D-Dimer (0-234) ng/mlDDU BUN (7-17) mg/dL Glucose (65-100) mg/dL POC Glucose 211 H 216 H (70-105) Ferritin (10.0-200.0) ng/mL C-Reactive Protein (0.00-1.30) mg/dL Urine Creatinine (0.1-20.0) mg/dL Urine Total Protein (5-11.8) mg/dL
--- NOTE | 2019-11-29 16:39 | Progress Note ---
Assessment and Plan - Patient Problems (1) Pneumonia due to COVID-19 virus Current Visit: Yes Status: Acute Plan to address problem: -11/26: COVID PCR positive -Trend inflammatory markers -11/28 antibiotics discontinued -Remdesivir day 05/19 -Dexamethasone PO q day day 06/21 -Prone to sleep as needed -Pulmonary hygiene -OOB 3 times daily and as needed -DVT prophylaxis with Lovenox per COVID protocol (2) Acute respiratory failure with hypoxia Current Visit: Yes Status: Acute Plan to address problem: -Likely secondary to COVID pneumonia -Supplemental oxygenation as needed -Pulmonary hygiene -Respiratory therapy to treat and evaluate (3) JOSEPH (acute kidney injury) Current Visit: Yes Status: Acute Plan to address problem: - Admit Cr 1.5 - Trended down to 1 - Likely secondary to vasomotor nephropathy (4) HTN (hypertension) Current Visit: Yes Status: Acute Plan to address problem: -Blood pressure monitoring per protocol -IV hydralazine as needed -Low dose HCTZ initiated (5) Diabetes Current Visit: Yes Status: Acute Plan to address problem: - SSI - ACCUcheck ACHS - CC diet (6) DVT prophylaxis Current Visit: Yes Status: Acute Plan to address problem: - Lovenox sub q per COVID protocol - SCDs to BLE while in bed History Interval history: This is a 74 F AAF with hypertension and Type 2 DM who presents to ER with shortness of breath, fever, chills, diffuse body aches on 11/27. As per pt's son she also developed altered mental status, for which EMS was called. Reportedly her sister recently tested positive for COVID19. In the ER she was hypoxic with O2 as low as 88%, labs showed elevated inflammatory parameters incl. D-dimer > 2469, ferritin > 752, LDH > 360, CRP > 19 and CXR showed increased b/l interstitial infiltrates pulmonary edema vs pneumonitis. Today she states she feels better. Education done regarding COVID PNA. Remains on supplemental oxygenation. 11/26: COVID PCR positive 11/27: patient is alert and oriented and not in any acute distress, offers no specific complaints except mild dry cough. She denies any shortness of breath or chest pain. Denies any fever or chills. Lab results reviewed. ID and nephrology consult Hospitalist Physical - Constitutional Vitals: Temp Pulse Resp BP Pulse Ox 97.7 F 63 20 157/70 97 11/29/19 06:03 11/29/19 06:03 11/29/19 10:00 11/29/19 06:03 11/29/19 10:00 General appearance: Present: no acute distress, well-nourished - EENT Eyes: Present: PERRL ENT: hearing intact, clear oral mucosa - Neck Neck: Present: normal ROM - Respiratory Respiratory effort: normal Respiratory: bilateral: diminished - Cardiovascular Rhythm: regular Heart Sounds: Present: S1 & S2. Absent: systolic murmur, diastolic murmur - Extremities Extremities: no ischemia, pulses intact, pulses symmetrical, No edema, normal temperature, normal color, Full ROM Peripheral Pulses: within normal limits - Abdominal General gastrointestinal: soft, non-tender, normal bowel sounds - Integumentary Integumentary: Present: clear, warm, dry - Psychiatric Psychiatric: appropriate mood/affect, cooperative - Neurologic Neurologic: CNII-XII intact, no focal deficits, moves all extremities - Allied Health Allied health notes reviewed: nursing, social work, case management HEART Score - HEART Score Risk factors: 1-2 risk factors Troponin: Troponin T 0.012 ng/mL (0.00-0.029) 11/27/19 08:10 Troponin: < normal limit Results - Labs CBC & Chem 7: 11/29/19 07:49 11/29/19 07:48 Labs: Laboratory Last Values WBC 6.4 K/mm3 (4.5-11.0) 11/29/19 07:49 RBC 4.07 M/mm3 (3.65-5.03) 11/29/19 07:49 Hgb 12.6 gm/dl (10.1-14.3) 11/29/19 07:49 Hct 38.4 % (30.3-42.9) 11/29/19 07:49 MCV 95 fl (79-97) 11/29/19 07:49 MCH 31 pg (28-32) 11/29/19 07:49 MCHC 33 % (30-34) 11/29/19 07:49 RDW 14.5 % (13.2-15.2) 11/29/19 07:49 Plt Count 332 K/mm3 (140-440) 11/29/19 07:49 Lymph % (Auto) 20.5 % (13.4-35.0) 11/26/19 18:39 Burnett % (Auto) 8.8 % (0.0-7.3) H 11/26/19 18:39 Eos % (Auto) 0.0 % (0.0-4.3) 11/26/19 18:39 Baso % (Auto) 0.8 % (0.0-1.8) 11/26/19 18:39 Lymph # 1.3 K/mm3 (1.2-5.4) 11/26/19 18:39 Burnett # 0.5 K/mm3 (0.0-0.8) 11/26/19 18:39 Eos # 0.0 K/mm3 (0.0-0.4) 11/26/19 18:39 Baso # 0.0 K/mm3 (0.0-0.1) 11/26/19 18:39 Seg Neutrophils % 69.9 % (40.0-70.0) 11/26/19 18:39 Seg Neutrophils # 4.3 K/mm3 (1.8-7.7) 11/26/19 18:39 D-Dimer 6439.97 ng/mlDDU (0-234) H 11/29/19 07:48 Sodium 142 mmol/L (137-145) 11/29/19 07:48 Potassium 3.9 mmol/L (3.6-5.0) 11/29/19 07:48 Chloride 100.8 mmol/L (98-107) 11/29/19 07:48 Carbon Dioxide 27 mmol/L (22-30) 11/29/19 07:48 Anion Gap 18 mmol/L 11/29/19 07:48 BUN 23 mg/dL (7-17) H 11/29/19 07:48 Creatinine 1.0 mg/dL (0.6-1.2) 11/29/19 07:48 Estimated GFR > 60 ml/min 11/29/19 07:48 BUN/Creatinine Ratio 23 % 11/29/19 07:48 Glucose 237 mg/dL (65-100) H 11/29/19 07:48 POC Glucose 216 (70-105) H 11/29/19 13:41 Lactic Acid 1.30 mmol/L (0.7-2.0) 11/27/19 08:10 Calcium 9.4 mg/dL (8.4-10.2) 11/29/19 07:48 Ferritin 897.1 ng/mL (10.0-200.0) H 11/29/19 07:48 Total Bilirubin 0.80 mg/dL (0.1-1.2) 11/26/19 18:39 AST 36 units/L (5-40) 11/26/19 18:39 ALT 15 units/L (7-56) 11/26/19 18:39 Alkaline Phosphatase 35 units/L (35-129) 11/26/19 18:39 Lactate Dehydrogenase 364 units/L (91-180) H 11/26/19 18:39 Troponin T 0.012 ng/mL (0.00-0.029) 11/27/19 08:10 C-Reactive Protein 15.40 mg/dL (0.00-1.30) H 11/29/19 07:48 Total Protein 7.6 g/dL (6.3-8.2) 11/26/19 18:39 Albumin 3.6 g/dL (3.9-5) L 11/26/19 18:39 Albumin/Globulin Ratio 0.9 % 11/26/19 18:39 Procalcitonin 0.22 ng/mL (<0.15) 11/26/19 18:39 Urine Color Yellow (Yellow) 11/28/19 Unknown Urine Turbidity Clear (Clear) 11/28/19 Unknown Urine pH 5.0 (5.0-7.0) 11/28/19 Unknown Ur Specific Mcdonough 1.014 (1.003-1.030) 11/28/19 Unknown Urine Protein 30 mg/dl mg/dL (Negative) 11/28/19 Unknown Urine Glucose (UA) >=500 mg/dL (Negative) 11/28/19 Unknown Urine Ketones Neg mg/dL (Negative) 11/28/19 Unknown Urine Blood Sm (Negative) 11/28/19 Unknown Urine Nitrite Neg (Negative) 11/28/19 Unknown Urine Bilirubin Neg (Negative) 11/28/19 Unknown Urine Urobilinogen < 2.0 mg/dL (<2.0) 11/28/19 Unknown Ur Leukocyte Esterase Neg (Negative) 11/28/19 Unknown Urine WBC (Auto) 1.0 /HPF (0.0-6.0) 11/28/19 Unknown Urine RBC (Auto) 1.0 /HPF (0.0-6.0) 11/28/19 Unknown U Epithel Cells (Auto) 1.0 /HPF (0-13.0) 11/28/19 Unknown Urine Creatinine 97.4 mg/dL (0.1-20.0) H 11/28/19 Unknown Urine Sodium 23 mmol/L 11/28/19 Unknown Urine Total Protein 27 mg/dL (5-11.8) H 11/28/19 Unknown Coronavirus (PCR) Positive (Negative) A 11/27/19 Unknown Microbiology: Microbiology 11/26/19 18:39 Peripheral/Venous Blood Culture - Preliminary NO GROWTH AFTER 48 HOURS 11/26/19 18:48 Peripheral/Venous Blood Culture - Preliminary NO GROWTH AFTER 48 HOURS Sanders/IV: Voiding Method Toilet IV Catheter Type [Left Forearm INT / Saline Lock ] IV Catheter Type [Right INT / Saline Lock Forearm] Active Medications - Current Medications Current Medications: Generic Name Dose Route Start Last Admin Trade Name Freq PRN Reason Stop Dose Admin Acetaminophen 650 mg 11/26/19 22:16 11/29/19 09:17 Tylenol PO 650 mg Q4H PRN Administration Fever >101 Dexamethasone 6 mg 11/28/19 11:00 11/29/19 09:16 Decadron PO 12/07/19 10:01 6 mg DAILY MYRON Administration Enoxaparin Sodium 60 mg 11/29/19 12:00 11/29/19 13:45 Enoxaparin SUB-Q 60 mg BID MYRON Administration REMDESIVIR 100 mg/ Sodium 250 mls @ 500 mls/hr 11/28/19 21:00 11/28/19 21:37 Chloride IV 12/01/19 21:29 500 mls/hr Q24HR@2100 MYRON Administration Insulin Human Lispro 0 unit 11/27/19 11:30 11/29/19 13:45 Humalog SUB-Q 3 unit ACHS MYRON Administration Protocol Ondansetron HCl 4 mg 11/26/19 22:16 Zofran IV Q8H PRN Nausea And Vomiting Sodium Chloride 50 ml 11/28/19 21:00 11/28/19 21:37 Nacl 0.9% IV 12/01/19 21:01 50 ml Q24HR@2100 MYRON Administration
--- NOTE | 2019-11-29 18:02 | Progress Note ---
Subjective Date of service: 11/27/19 Principal diagnosis: JOSEPH, COVID19 Interval history: Patient admitted for weakness , confusion and shortness of breath. She is alert and oriented. C/O dry cough and sob with minimal effort Denies fever/chills Lab results reviewed A/P: Hypoxia: O2 sat on 3L/min via NC is 95% Suspected covid 19 pneumonitis: covid 19 results pending cont. decadron ID consult if covid test turns out positive JOSEPH: cont. Mild gentle IV fluids Monitor renal function Avoid nephrotoxins Hypokalemia: Mild Potassium supplemented Monitor electrolytes Objective - Constitutional Vitals: Vital Signs - 12hr 11/29/19 11/29/19 06:03 10:00 Temperature 97.7 F Pulse Rate 63 Respiratory 18 20 Rate Blood Pressure 157/70 O2 Sat by Pulse 94 97 Oximetry General appearance: Present: no acute distress, well-nourished - EENT Eyes: PERRL, EOM intact ENT: hearing intact, clear oral mucosa - Neck Neck: supple, normal ROM, no masses or JVD - Respiratory Respiratory effort: normal Respiratory: bilateral: CTA - Breasts Breasts: deferred - Cardiovascular Rhythm: regular Heart Sounds: Present: S1 & S2 Extremities: No edema - Gastrointestinal General gastrointestinal: Present: soft, non-tender Rectal Exam: deferred - Genitourinary Female genitourinary: deferred - Integumentary Integumentary: clear - Musculoskeletal Musculoskeletal: strength equal bilaterally - Neurologic Neurologic: CNII-XII intact, moves all extremities - Psychiatric Psychiatric: appropriate mood/affect - Labs CBC & Chem 7: 11/29/19 07:49 11/29/19 07:48 Labs: Abnormal lab results 11/28/19 11/28/19 11/29/19 Range/Units 23:06 Unknown 07:48 D-Dimer 6439.97 H (0-234) ng/mlDDU BUN (7-17) mg/dL Glucose (65-100) mg/dL POC Glucose 313 H (70-105) Ferritin (10.0-200.0) ng/mL C-Reactive Protein (0.00-1.30) mg/dL Urine Creatinine 97.4 H (0.1-20.0) mg/dL Urine Total Protein 27 H (5-11.8) mg/dL 11/29/19 11/29/1920 Range/Units 07:48 07:48 07:54 D-Dimer (0-234) ng/mlDDU BUN 23 H (7-17) mg/dL Glucose 237 H (65-100) mg/dL POC Glucose 211 H (70-105) Ferritin 897.1 H (10.0-200.0) ng/mL C-Reactive Protein 15.40 H (0.00-1.30) mg/dL Urine Creatinine (0.1-20.0) mg/dL Urine Total Protein (5-11.8) mg/dL 11/29/19 Range/Units 13:41 D-Dimer (0-234) ng/mlDDU BUN (7-17) mg/dL Glucose (65-100) mg/dL POC Glucose 216 H (70-105) Ferritin (10.0-200.0) ng/mL C-Reactive Protein (0.00-1.30) mg/dL Urine Creatinine (0.1-20.0) mg/dL Urine Total Protein (5-11.8) mg/dL HEART Score - HEART Score Risk factors: 1-2 risk factors Troponin: Troponin T 0.012 ng/mL (0.00-0.029) 11/27/19 08:10 Troponin: < normal limit
[2019-11-29] MEDS: REMDESIVIR 100 MG in SODIUM CHLORIDE 0.9% 250ML 250 ML IV SCH (22:01)
[2019-11-29] MEDS: SODIUM CHLORIDE 0.9% 50 ML IVPB IV SCH (22:46)
[2019-11-30 06:24] LABS: BUN/Creatinine Ratio 29
[2019-11-30 06:29] LABS: Blood Urea Nitrogen 24 mg/dL (7-17); Calcium 9.1 mg/dL (8.4-10.2); Hemolysis Index 5
[2019-11-30] MEDS: INSULIN LISPRO 100 UNIT/ML VIAL 3 mL SUB-Q SCH ×4 (09:12→23:36)
[2019-11-30] MEDS: ENOXAPARIN 60 MG/0.6 ML INJ SUB-Q SCH ×2 (09:20→21:59)
[2019-11-30] MEDS: DEXAMETHASONE 4 MG TAB PO SCH (09:23)
[2019-11-30] MEDS ORDERED: hydroCHLOROthiazide 12.5 MG CAP PO SCH (10:00)
--- NOTE | 2019-11-30 11:09 | Progress Note ---
Assessment and Plan - Patient Problems (1) JOSEPH (acute kidney injury) Current Visit: Yes Status: Acute Plan to address problem: Kidney function has improved. We will sign off. Please reconsult as needed. Follow-up kidney function periodically (2) Pneumonia due to COVID-19 virus Current Visit: Yes Status: Acute Plan to address problem: Continue management as per infectious disease -continue Decadron, anticoagulation, Remdesevir. Trend inflammatory markers. (3) Acute respiratory failure with hypoxia Current Visit: Yes Status: Acute Plan to address problem: Respiratory status has improved. Continue management (4) Hypokalemia Current Visit: Yes Status: Acute Plan to address problem: Potassium is now replete. Follow-up levels (5) Hyponatremia Current Visit: Yes Status: Acute Plan to address problem: Sodium has improved. Follow-up Subjective Date of service: 11/30/19 Principal diagnosis: JOSEPH, COVID19 Interval history: Patient was not examined at bedside today due to PPE conservation. Chart reviewed and events noted Objective - Exam Narrative Exam: Patient was not examined at bedside today due to PPE conservation. - Vital Signs Vital signs: Vital Signs - 12hr 11/29/19 11/30/19 23:16 05:18 Temperature 97.5 F L Pulse Rate 57 L Respiratory 18 20 Rate Blood Pressure 173/48 O2 Sat by Pulse 93 Oximetry - Lab 11/29/19 07:49 11/30/19 05:07 Most recent lab results Calcium 9.1 mg/dL (8.4-10.2) 11/30/19 05:07 Urine Creatinine 97.4 mg/dL (0.1-20.0) H 11/28/19 Unknown Urine Sodium 23 mmol/L 11/28/19 Unknown Urine Total Protein 27 mg/dL (5-11.8) H 11/28/19 Unknown Medications & Allergies - Medications Allergies/Adverse Reactions: Allergies No Known Allergies Allergy (Unverified 11/26/19 19:22) Home Medications: Home Medications Medication Instructions Recorded Confirmed Last Taken Type No Known Home Medications [No 11/28/19 11/28/19 Unknown History Reported Home Medications] Active Medications: Generic Name Dose Route Start Last Admin Trade Name Freq PRN Reason Stop Dose Admin Acetaminophen 650 mg 11/26/19 22:16 11/29/19 23:16 Tylenol PO 650 mg Q4H PRN Administration Fever >101 Dexamethasone 6 mg 11/28/19 11:00 11/30/19 09:23 Decadron PO 12/07/19 10:01 6 mg DAILY MYRON Administration Enoxaparin Sodium 60 mg 11/29/19 12:00 11/30/19 09:20 Enoxaparin SUB-Q 60 mg BID MYRON Administration Hydrochlorothiazide 12.5 mg 11/30/19 10:00 11/30/19 09:20 Hctz PO 12.5 mg QDAY MYRON Administration REMDESIVIR 100 mg/ Sodium 250 mls @ 500 mls/hr 11/28/19 21:00 11/29/19 22:01 Chloride IV 12/01/19 21:29 500 mls/hr Q24HR@2100 MYRON Administration Insulin Human Lispro 0 unit 11/27/19 11:30 11/30/19 09:12 Humalog SUB-Q 300 unit ACHS MYRON Administration Protocol Ondansetron HCl 4 mg 11/26/19 22:16 Zofran IV Q8H PRN Nausea And Vomiting Sodium Chloride 50 ml 11/28/19 21:00 11/29/19 22:46 Nacl 0.9% IV 12/01/19 21:01 50 ml Q24HR@2100 MYRON Administration
--- NOTE | 2019-11-30 14:43 | Progress Note ---
Assessment and Plan Cultures: Blood culture 11/26/2019 negative COVID PCR: positive A/P: 74-year-old female past medical history hypertension, diabetes, admitted with COVID-19 #Severe COVID-19 pneumonia: Patient presented with 2 days of symptoms, chest x- ray with edema versus infiltrates. #Acute hypoxemic respiratory failure: Likely secondary to COVID-19 infection. Currently on 3-4 L nasal cannula #Diabetes: tight glycemic control for best outcomes. #Obesity: Associated with worse COVID-19 outcomes. Recs: -Continue Dexamethasone 6 mg IV/PO daily for 10 days, D4 -Continue Remdesivir, D3. Follow renal and liver function. -monitor inflammatory markers - ferritin, Ddimer, CRP, LDH -Anticoagulation per protocol -eval for home oxygen prior to discharge. Taj Mcarthur MD, FACP [facility] ([facility]) C: [phone] O: [phone] F: [phone] Subjective Date of service: 11/30/19 Principal diagnosis: JOSEPH, COVID19 Interval history: No fever. Remains on oxygen by [place]. Objective - Exam Narrative Exam: Physical Exam (reviewed in chart due to PPE conservation) Constitutional: limited due to PPE conservation strategy Head, Ears, Nose: limited due to PPE conservation strategy Eyes: limited due to PPE conservation strategy Neck: limited due to PPE conservation strategy Oral: limited due to PPE conservation strategy Cardiovascular: limited due to PPE conservation strategy Respiratory: limited due to PPE conservation strategy GI: limited due to PPE conservation strategy Musculoskeletal: limited due to PPE conservation strategy Skin: limited due to PPE conservation strategy Hem/Lymphatic: limited due to PPE conservation strategy Psych: limited due to PPE conservation strategy Neurological: limited due to PPE conservation strategy - Constitutional Vitals: Vital Signs Temp Pulse Resp BP Pulse Ox 97.5 F L 57 L 20 173/48 93 11/30/19 05:18 11/30/19 05:18 11/30/19 05:18 11/30/19 05:18 11/30/19 05:18 Temperature -Last 24 Hours Temperature 97.5 F Temperature 98.1 F - Labs CBC & Chem 7: 11/29/19 07:49 11/30/19 05:07 Labs: Abnormal lab results 11/29/19 11/29/19 11/30/19 Range/Units 07:49 22:58 05:07 D-Dimer 2434.11 H (0-234) ng/mlDDU Sodium (137-145) mmol/L Chloride (98-107) mmol/L BUN (7-17) mg/dL Glucose (65-100) mg/dL POC Glucose 316 H (70-105) Hemoglobin A1c 6.4 H (4-6) % Ferritin (10.0-200.0) ng/mL Lactate Dehydrogenase (91-180) units/L C-Reactive Protein (0.00-1.30) mg/dL 11/30/19 11/30/19 11/30/19 Range/Units 05:07 05:07 08:12 D-Dimer (0-234) ng/mlDDU Sodium 136 L (137-145) mmol/L Chloride 97.5 L (98-107) mmol/L BUN 24 H (7-17) mg/dL Glucose 329 H (65-100) mg/dL POC Glucose 316 H (70-105) Hemoglobin A1c (4-6) % Ferritin 858.8 H (10.0-200.0) ng/mL Lactate Dehydrogenase 390 H (91-180) units/L C-Reactive Protein 7.60 H (0.00-1.30) mg/dL 11/30/19 Range/Units 11:28 D-Dimer (0-234) ng/mlDDU Sodium (137-145) mmol/L Chloride (98-107) mmol/L BUN (7-17) mg/dL Glucose (65-100) mg/dL POC Glucose 314 H (70-105) Hemoglobin A1c (4-6) % Ferritin (10.0-200.0) ng/mL Lactate Dehydrogenase (91-180) units/L C-Reactive Protein (0.00-1.30) mg/dL
--- NOTE | 2019-11-30 15:01 | Progress Note ---
Assessment and Plan - Patient Problems (1) Pneumonia due to COVID-19 virus Current Visit: Yes Status: Acute Plan to address problem: -11/26: COVID PCR positive -Trend inflammatory markers -11/28 antibiotics discontinued -Remdesivir day 06/15 -Dexamethasone PO q day day 07/22 -Prone to sleep as needed -Pulmonary hygiene -OOB 3 times daily and as needed -DVT prophylaxis with Lovenox per COVID protocol -Pre/post ambulation oxygen evaluation pending (2) Acute respiratory failure with hypoxia Current Visit: Yes Status: Acute Plan to address problem: -Likely secondary to COVID pneumonia -Supplemental oxygenation as needed -Pulmonary hygiene -Respiratory therapy to treat and evaluate (3) JOSEPH (acute kidney injury) Current Visit: Yes Status: Resolved Plan to address problem: - Admit Cr 1.5 - Trended down to 1 - Likely secondary to vasomotor nephropathy (4) HTN (hypertension) Current Visit: Yes Status: Acute Plan to address problem: -Blood pressure monitoring per protocol -IV hydralazine as needed - 11/29 increased HCTZ dose (5) Diabetes Current Visit: Yes Status: Acute Plan to address problem: - SSI - ACCUcheck ACHS - CC diet (6) DVT prophylaxis Current Visit: Yes Status: Acute Plan to address problem: - Lovenox sub q per COVID protocol - SCDs to BLE while in bed History Interval history: This is a 74 F AAF with hypertension and Type 2 DM who presents to ER with shortness of breath, fever, chills, diffuse body aches on 11/27. As per pt's son she also developed altered mental status, for which EMS was called. Reportedly her sister recently tested positive for COVID19. In the ER she was hypoxic with O2 as low as 88%, labs showed elevated inflammatory parameters incl. D-dimer > 2469, ferritin > 752, LDH > 360, CRP > 19 and CXR showed increased b/l interstitial infiltrates pulmonary edema vs pneumonitis. Today she states she feels better and relays she has been walking more today. Remains on supplemental oxygenation. She is on day 3/4 of remdesivir. Pre/Post ambulation Oxygen eval ordered. 11/26: COVID PCR positive 11/27: ID and nephrology consult, initiated on Remdesivir 11/28: States she is feeling better however she still remains on supplemental oxygenation. Remdesivir day 2/. Education done regarding COVID PNA. Hospitalist Physical - Constitutional Vitals: Temp Pulse Resp BP Pulse Ox 97.5 F L 57 L 20 173/48 93 11/30/19 05:18 11/30/19 05:18 11/30/19 05:18 11/30/19 05:18 11/30/19 05:18 General appearance: Present: no acute distress, well-nourished - EENT Eyes: Present: PERRL ENT: hearing intact - Neck Neck: Present: supple, normal ROM - Respiratory Respiratory effort: normal Respiratory: bilateral: diminished - Cardiovascular Rhythm: regular Heart Sounds: Present: S1 & S2. Absent: systolic murmur, diastolic murmur - Extremities Extremities: no ischemia, pulses intact, pulses symmetrical, No edema, normal temperature, normal color, Full ROM Peripheral Pulses: within normal limits - Abdominal General gastrointestinal: soft, non-tender, non-distended, normal bowel sounds - Integumentary Integumentary: Present: clear, warm, dry - Psychiatric Psychiatric: appropriate mood/affect, cooperative - Neurologic Neurologic: CNII-XII intact, no focal deficits, moves all extremities, gait normal - Allied Health Allied health notes reviewed: nursing, social work, case management HEART Score - HEART Score Risk factors: 1-2 risk factors Troponin: Troponin T 0.012 ng/mL (0.00-0.029) 11/27/19 08:10 Troponin: < normal limit Results - Labs CBC & Chem 7: 11/29/19 07:49 11/30/19 05:07 Labs: Laboratory Last Values WBC 6.4 K/mm3 (4.5-11.0) 11/29/19 07:49 RBC 4.07 M/mm3 (3.65-5.03) 11/29/19 07:49 Hgb 12.6 gm/dl (10.1-14.3) 11/29/19 07:49 Hct 38.4 % (30.3-42.9) 11/29/19 07:49 MCV 95 fl (79-97) 11/29/19 07:49 MCH 31 pg (28-32) 11/29/19 07:49 MCHC 33 % (30-34) 11/29/19 07:49 RDW 14.5 % (13.2-15.2) 11/29/19 07:49 Plt Count 332 K/mm3 (140-440) 11/29/19 07:49 Lymph % (Auto) 20.5 % (13.4-35.0) 11/26/19 18:39 [place] % (Auto) 8.8 % (0.0-7.3) H 11/26/19 18:39 Eos % (Auto) 0.0 % (0.0-4.3) 11/26/19 18:39 Baso % (Auto) 0.8 % (0.0-1.8) 11/26/19 18:39 Lymph # 1.3 K/mm3 (1.2-5.4) 11/26/19 18:39 [place] # 0.5 K/mm3 (0.0-0.8) 11/26/19 18:39 Eos # 0.0 K/mm3 (0.0-0.4) 11/26/19 18:39 Baso # 0.0 K/mm3 (0.0-0.1) 11/26/19 18:39 Seg Neutrophils % 69.9 % (40.0-70.0) 11/26/19 18:39 Seg Neutrophils # 4.3 K/mm3 (1.8-7.7) 11/26/19 18:39 D-Dimer 2434.11 ng/mlDDU (0-234) H 11/30/19 05:07 Sodium 136 mmol/L (137-145) L 11/30/19 05:07 Potassium 4.0 mmol/L (3.6-5.0) 11/30/19 05:07 Chloride 97.5 mmol/L (98-107) L 11/30/19 05:07 Carbon Dioxide 24 mmol/L (22-30) 11/30/19 05:07 Anion Gap 19 mmol/L 11/30/19 05:07 BUN 24 mg/dL (7-17) H 11/30/19 05:07 Creatinine 0.9 mg/dL (0.6-1.2) 11/30/19 05:07 Estimated GFR > 60 ml/min 11/30/19 05:07 BUN/Creatinine Ratio 29 % 11/30/19 05:07 Glucose 329 mg/dL (65-100) H 11/30/19 05:07 POC Glucose 314 (70-105) H 11/30/19 11:28 Hemoglobin A1c 6.4 % (4-6) H 11/29/19 07:49 Lactic Acid 1.30 mmol/L (0.7-2.0) 11/27/19 08:10 Calcium 9.1 mg/dL (8.4-10.2) 11/30/19 05:07 Ferritin 858.8 ng/mL (10.0-200.0) H 11/30/19 05:07 Total Bilirubin 0.80 mg/dL (0.1-1.2) 11/26/19 18:39 AST 36 units/L (5-40) 11/26/19 18:39 ALT 15 units/L (7-56) 11/26/19 18:39 Alkaline Phosphatase 35 units/L (35-129) 11/26/19 18:39 Lactate Dehydrogenase 390 units/L (91-180) H 11/30/19 05:07 Troponin T 0.012 ng/mL (0.00-0.029) 11/27/19 08:10 C-Reactive Protein 7.60 mg/dL (0.00-1.30) H 11/30/19 05:07 Total Protein 7.6 g/dL (6.3-8.2) 11/26/19 18:39 Albumin 3.6 g/dL (3.9-5) L 11/26/19 18:39 Albumin/Globulin Ratio 0.9 % 11/26/19 18:39 Procalcitonin 0.22 ng/mL (<0.15) 11/26/19 18:39 Urine Color Yellow (Yellow) 11/28/19 Unknown Urine Turbidity Clear (Clear) 11/28/19 Unknown Urine pH 5.0 (5.0-7.0) 11/28/19 Unknown Ur Specific [place] 1.014 (1.003-1.030) 11/28/19 Unknown Urine Protein 30 mg/dl mg/dL (Negative) 11/28/19 Unknown Urine Glucose (UA) >=500 mg/dL (Negative) 11/28/19 Unknown Urine Ketones Neg mg/dL (Negative) 11/28/19 Unknown Urine Blood Sm (Negative) 11/28/19 Unknown Urine Nitrite Neg (Negative) 11/28/19 Unknown Urine Bilirubin Neg (Negative) 11/28/19 Unknown Urine Urobilinogen < 2.0 mg/dL (<2.0) 11/28/19 Unknown Ur Leukocyte Esterase Neg (Negative) 11/28/19 Unknown Urine WBC (Auto) 1.0 /HPF (0.0-6.0) 11/28/19 Unknown Urine RBC (Auto) 1.0 /HPF (0.0-6.0) 11/28/19 Unknown U Epithel Cells (Auto) 1.0 /HPF (0-13.0) 11/28/19 Unknown Urine Creatinine 97.4 mg/dL (0.1-20.0) H 11/28/19 Unknown Urine Sodium 23 mmol/L 11/28/19 Unknown Urine Total Protein 27 mg/dL (5-11.8) H 11/28/19 Unknown Coronavirus (PCR) Positive (Negative) A 11/27/19 Unknown Microbiology: Microbiology 11/26/19 18:39 Peripheral/Venous Blood Culture - Preliminary NO GROWTH AFTER 72 HOURS 11/26/19 18:48 Peripheral/Venous Blood Culture - Preliminary NO GROWTH AFTER 72 HOURS Sanders/IV: Voiding Method Toilet IV Catheter Type [Left Forearm INT / Saline Lock ] IV Catheter Type [Right INT / Saline Lock Forearm] Active Medications - Current Medications Current Medications: Generic Name Dose Route Start Last Admin Trade Name Freq PRN Reason Stop Dose Admin Acetaminophen 650 mg 11/26/19 22:16 11/29/19 23:16 Tylenol PO 650 mg Q4H PRN Administration Fever >101 Dexamethasone 6 mg 11/28/19 11:00 11/30/19 09:23 Decadron PO 12/07/19 10:01 6 mg DAILY MYRON Administration Enoxaparin Sodium 60 mg 11/29/19 12:00 11/30/19 09:20 Enoxaparin SUB-Q 60 mg BID MYRON Administration Hydrochlorothiazide 12.5 mg 11/30/19 10:00 11/30/19 09:20 Hctz PO 12.5 mg QDAY MYRON Administration REMDESIVIR 100 mg/ Sodium 250 mls @ 500 mls/hr 11/28/19 21:00 11/29/19 22:01 Chloride IV 12/01/19 21:29 500 mls/hr Q24HR@2100 MYRON Administration Insulin Human Lispro 0 unit 11/27/19 11:30 11/30/19 12:29 Humalog SUB-Q 6 unit ACHS MYRON Administration Protocol Ondansetron HCl 4 mg 11/26/19 22:16 Zofran IV Q8H PRN Nausea And Vomiting Sodium Chloride 50 ml 11/28/19 21:00 11/29/19 22:46 Nacl 0.9% IV 12/01/19 21:01 50 ml Q24HR@2100 MYRON Administration
[2019-11-30] MEDS: SODIUM CHLORIDE 0.9% 50 ML IVPB IV SCH (21:59)
[2019-11-30] MEDS: REMDESIVIR 100 MG in SODIUM CHLORIDE 0.9% 250ML 250 ML IV SCH (22:00)
[2019-12-01] MEDS: hydrALAZINE 20 MG/1 ML INJ IV PRN ×3 (05:49→23:44)
[2019-12-01 08:18] LABS: Alanine Aminotransferase 21 units/L (7-56); Albumin 3.3 g/dL (3.9-5); BUN/Creatinine Ratio 26; Blood Urea Nitrogen 23 mg/dL (7-17); Calcium 9.6 mg/dL (8.4-10.2); Hemolysis Index 11
[2019-12-01] MEDS: INSULIN LISPRO 100 UNIT/ML VIAL 3 mL SUB-Q SCH ×4 (08:36→23:08)
[2019-12-01] MEDS ORDERED: hydroCHLOROthiazide 25 MG TAB PO SCH ×2 (10:00)
[2019-12-01] MEDS: DEXAMETHASONE 4 MG TAB PO SCH (10:22)
[2019-12-01] MEDS: ACETAMINOPHEN 325 MG TAB PO PRN ×2 (10:22→18:31)
[2019-12-01] MEDS: ENOXAPARIN 60 MG/0.6 ML INJ SUB-Q SCH ×2 (10:23→22:07)
[2019-12-01] MEDS ORDERED: REMDESIVIR 100 MG in SODIUM CHLORIDE 0.9% 250ML 250 ML IV ONE (12:00)
--- NOTE | 2019-12-01 13:37 | Progress Note ---
Assessment and Plan Cultures: Blood culture 11/26/2019 negative COVID PCR: positive A/P: 74-year-old female past medical history hypertension, diabetes, admitted with COVID-19 #Severe COVID-19 pneumonia: Patient presented with 2 days of symptoms, chest x- ray with edema versus infiltrates. #Acute hypoxemic respiratory failure: Likely secondary to COVID-19 infection. Improving. #Diabetes: tight glycemic control for best outcomes. #Obesity: Associated with worse COVID-19 outcomes. Recs: -Continue Dexamethasone 6 mg IV/PO daily for 10 days, D5 -Remdesivir, D4. -OK for discharge from ID standpoint, complete the steroid course of 10 days d/w Dr. Yu and Starla Guerrero, [employer] Taj Mcarthur MD, FACP [facility] ([facility]) C: [phone] O: [phone] F: [phone] Subjective Date of service: 12/01/19 Principal diagnosis: JOSEPH, COVID19 Interval history: No fever. Did well on room air ambulatory sats yesterday evening Objective - Exam Narrative Exam: Physical Exam (reviewed in chart due to PPE conservation) Constitutional: limited due to PPE conservation strategy Head, Ears, Nose: limited due to PPE conservation strategy Eyes: limited due to PPE conservation strategy Neck: limited due to PPE conservation strategy Oral: limited due to PPE conservation strategy Cardiovascular: limited due to PPE conservation strategy Respiratory: limited due to PPE conservation strategy GI: limited due to PPE conservation strategy Musculoskeletal: limited due to PPE conservation strategy Skin: limited due to PPE conservation strategy Hem/Lymphatic: limited due to PPE conservation strategy Psych: limited due to PPE conservation strategy Neurological: limited due to PPE conservation strategy - Constitutional Vitals: Vital Signs Temp Pulse Resp BP Pulse Ox 97.9 F 60 20 179/67 98 12/01/19 11:48 12/01/19 11:48 12/01/19 11:48 12/01/19 11:48 12/01/19 11:48 Temperature -Last 24 Hours Temperature 97.9 F Temperature 97.6 F Temperature 97.8 F Temperature 97.0 F - Labs CBC & Chem 7: 11/29/19 07:49 12/01/19 07:26 Labs: Abnormal lab results 11/30/19 11/30/19 12/01/19 Range/Units 16:46 21:41 07:26 BUN 23 H (7-17) mg/dL Glucose 325 H (65-100) mg/dL POC Glucose 300 H 359 H (70-105) Albumin 3.3 L (3.9-5) g/dL 12/01/19 12/01/19 Range/Units 08:26 12:03 BUN (7-17) mg/dL Glucose (65-100) mg/dL POC Glucose 312 H 304 H (70-105) Albumin (3.9-5) g/dL
[2019-12-01] MEDS ORDERED: LISINOPRIL 20 MG TAB PO SCH (14:47)
--- NOTE | 2019-12-01 14:54 | Event Note ---
Home O2 evaluation requested. However it was done by me at bedside. On my first contact today the patient was on room air. Resting on room air, her SPO2 was 94-95%. SPO2 with exercise on room air was 87 to 88%. SPO2 98% on 2 L oxygen via [place] while resting. BAKARI Benitez aware. Will need to be discharged on home oxygenation. Circumstances explained to patient and need to follow-up with primary care provider after discharge for evaluation of continuing need of supplemental oxygen. Patient is tearful on hearing she will be discharged on home Oxygen. Education provided
--- NOTE | 2019-12-01 16:30 | Progress Note ---
Assessment and Plan - Patient Problems (1) Pneumonia due to COVID-19 virus Current Visit: Yes Status: Acute Plan to address problem: -11/26: COVID PCR positive -Trend inflammatory markers -11/28 antibiotics discontinued -s/p IV Remdesivir (11/26-11/30) -Dexamethasone PO q day day 09/21 -Prone to sleep as needed -Pulmonary hygiene -OOB 3 times daily and as needed -DVT prophylaxis with Lovenox per COVID protocol -Pre/post ambulation oxygen evaluation noted, needs home oxygen -Continuous pulse ox (2) Acute respiratory failure with hypoxia Current Visit: Yes Status: Acute Plan to address problem: -Likely secondary to COVID pneumonia -Supplemental oxygenation as needed -Pulmonary hygiene -Respiratory therapy to treat and evaluate (3) JOSEPH (acute kidney injury) Current Visit: Yes Status: Resolved Plan to address problem: - Admit Cr 1.5 - Trended down to 1 - Likely secondary to vasomotor nephropathy (4) HTN (hypertension) Current Visit: Yes Status: Acute Plan to address problem: -Blood pressure monitoring per protocol -IV hydralazine as needed -ANTHONY and BB (5) Diabetes Current Visit: Yes Status: Acute Plan to address problem: - SSI - ACCUcheck ACHS - CC diet (6) DVT prophylaxis Current Visit: Yes Status: Acute Plan to address problem: - Lovenox sub q per COVID protocol - SCDs to BLE while in bed History Interval history: This is a 74 F AAF with hypertension and Type 2 DM who presents to ER with shortness of breath, fever, chills, diffuse body aches on 11/27. As per pt's son she also developed altered mental status, for which EMS was called. Reportedly her sister recently tested positive for COVID19. In the ER she was hypoxic with O2 as low as 88%, labs showed elevated inflammatory parameters incl. D-dimer > 2469, ferritin > 752, LDH > 360, CRP > 19 and CXR showed increased b/l interstitial infiltrates pulmonary edema vs pneumonitis. Repeated pre-/post ambulation SPO2 and will require discharge on home oxygenation. training project manager aware and education done at bedside guarding need for home oxygen. Patient is still tearful after learning that she will be discharged with home oxygen. 11/26: COVID PCR positive 11/27: ID and nephrology consult, initiated on Remdesivir 11/28: States she is feeling better however she still remains on supplemental oxygenation. Remdesivir day 2/. Education done regarding COVID PNA. 11/29: Symptomatically better. Remdesivir day 3/. Pre/Post ambulation SPO2 documented at 92%. Hospitalist Physical - Constitutional Vitals: Temp Pulse Resp BP Pulse Ox 97.9 F 60 20 179/67 98 12/01/19 11:48 12/01/19 11:48 12/01/19 11:48 12/01/19 11:48 12/01/19 11:48 General appearance: Present: no acute distress, well-nourished - EENT Eyes: Present: PERRL ENT: hearing intact - Neck Neck: Present: supple - Respiratory Respiratory effort: normal Respiratory: bilateral: diminished - Cardiovascular Rhythm: regular Heart Sounds: Present: S1 & S2. Absent: systolic murmur, diastolic murmur - Extremities Extremities: no ischemia, pulses intact, pulses symmetrical, No edema, normal temperature, normal color, Full ROM Peripheral Pulses: within normal limits - Abdominal General gastrointestinal: soft, non-tender, non-distended, normal bowel sounds - Integumentary Integumentary: Present: clear, warm, dry - Psychiatric Psychiatric: appropriate mood/affect, cooperative - Neurologic Neurologic: CNII-XII intact, no focal deficits, moves all extremities, gait normal - Allied Health Allied health notes reviewed: nursing, social work, case management HEART Score - HEART Score Risk factors: 1-2 risk factors Troponin: Troponin T 0.012 ng/mL (0.00-0.029) 11/27/19 08:10 Troponin: < normal limit Results - Labs CBC & Chem 7: 11/29/19 07:49 12/01/19 07:26 Labs: Laboratory Last Values WBC 6.4 K/mm3 (4.5-11.0) 11/29/19 07:49 RBC 4.07 M/mm3 (3.65-5.03) 11/29/19 07:49 Hgb 12.6 gm/dl (10.1-14.3) 11/29/19 07:49 Hct 38.4 % (30.3-42.9) 11/29/19 07:49 MCV 95 fl (79-97) 11/29/19 07:49 MCH 31 pg (28-32) 11/29/19 07:49 MCHC 33 % (30-34) 11/29/19 07:49 RDW 14.5 % (13.2-15.2) 11/29/19 07:49 Plt Count 332 K/mm3 (140-440) 11/29/19 07:49 Lymph % (Auto) 20.5 % (13.4-35.0) 11/26/19 18:39 [place] % (Auto) 8.8 % (0.0-7.3) H 11/26/19 18:39 Eos % (Auto) 0.0 % (0.0-4.3) 11/26/19 18:39 Baso % (Auto) 0.8 % (0.0-1.8) 11/26/19 18:39 Lymph # 1.3 K/mm3 (1.2-5.4) 11/26/19 18:39 [place] # 0.5 K/mm3 (0.0-0.8) 11/26/19 18:39 Eos # 0.0 K/mm3 (0.0-0.4) 11/26/19 18:39 Baso # 0.0 K/mm3 (0.0-0.1) 11/26/19 18:39 Seg Neutrophils % 69.9 % (40.0-70.0) 11/26/19 18:39 Seg Neutrophils # 4.3 K/mm3 (1.8-7.7) 11/26/19 18:39 D-Dimer 2434.11 ng/mlDDU (0-234) H 11/30/19 05:07 Sodium 139 mmol/L (137-145) 12/01/19 07:26 Potassium 3.6 mmol/L (3.6-5.0) 12/01/19 07:26 Chloride 100.8 mmol/L (98-107) 12/01/19 07:26 Carbon Dioxide 24 mmol/L (22-30) 12/01/19 07:26 Anion Gap 18 mmol/L 12/01/19 07:26 BUN 23 mg/dL (7-17) H 12/01/19 07:26 Creatinine 0.9 mg/dL (0.6-1.2) 12/01/19 07:26 Estimated GFR > 60 ml/min 12/01/19 07:26 BUN/Creatinine Ratio 26 % 12/01/19 07:26 Glucose 325 mg/dL (65-100) H 12/01/19 07:26 POC Glucose 304 (70-105) H 12/01/19 12:03 Hemoglobin A1c 6.4 % (4-6) H 11/29/19 07:49 Lactic Acid 1.30 mmol/L (0.7-2.0) 11/27/19 08:10 Calcium 9.6 mg/dL (8.4-10.2) 12/01/19 07:26 Ferritin 858.8 ng/mL (10.0-200.0) H 11/30/19 05:07 Total Bilirubin 0.50 mg/dL (0.1-1.2) 12/01/19 07:26 AST 24 units/L (5-40) 12/01/19 07:26 ALT 21 units/L (7-56) 12/01/19 07:26 Alkaline Phosphatase 43 units/L (35-129) 12/01/19 07:26 Lactate Dehydrogenase 390 units/L (91-180) H 11/30/19 05:07 Troponin T 0.012 ng/mL (0.00-0.029) 11/27/19 08:10 C-Reactive Protein 7.60 mg/dL (0.00-1.30) H 11/30/19 05:07 Total Protein 7.0 g/dL (6.3-8.2) 12/01/19 07:26 Albumin 3.3 g/dL (3.9-5) L 12/01/19 07:26 Albumin/Globulin Ratio 0.9 % 12/01/19 07:26 Procalcitonin 0.22 ng/mL (<0.15) 11/26/19 18:39 Urine Color Yellow (Yellow) 11/28/19 Unknown Urine Turbidity Clear (Clear) 11/28/19 Unknown Urine pH 5.0 (5.0-7.0) 11/28/19 Unknown Ur Specific [place] 1.014 (1.003-1.030) 11/28/19 Unknown Urine Protein 30 mg/dl mg/dL (Negative) 11/28/19 Unknown Urine Glucose (UA) >=500 mg/dL (Negative) 11/28/19 Unknown Urine Ketones Neg mg/dL (Negative) 11/28/19 Unknown Urine Blood Sm (Negative) 11/28/19 Unknown Urine Nitrite Neg (Negative) 11/28/19 Unknown Urine Bilirubin Neg (Negative) 11/28/19 Unknown Urine Urobilinogen < 2.0 mg/dL (<2.0) 11/28/19 Unknown Ur Leukocyte Esterase Neg (Negative) 11/28/19 Unknown Urine WBC (Auto) 1.0 /HPF (0.0-6.0) 11/28/19 Unknown Urine RBC (Auto) 1.0 /HPF (0.0-6.0) 11/28/19 Unknown U Epithel Cells (Auto) 1.0 /HPF (0-13.0) 11/28/19 Unknown Urine Creatinine 97.4 mg/dL (0.1-20.0) H 11/28/19 Unknown Urine Sodium 23 mmol/L 11/28/19 Unknown Urine Total Protein 27 mg/dL (5-11.8) H 11/28/19 Unknown Coronavirus (PCR) Positive (Negative) A 11/27/19 Unknown Microbiology: Microbiology 11/26/19 18:48 Peripheral/Venous Blood Culture - Preliminary NO GROWTH AFTER 4 DAYS 11/26/19 18:39 Peripheral/Venous Blood Culture - Preliminary NO GROWTH AFTER 4 DAYS Sanders/IV: Voiding Method Toilet IV Catheter Type [Left Forearm INT / Saline Lock ] IV Catheter Type [Right INT / Saline Lock Forearm] Active Medications - Current Medications Current Medications: Generic Name Dose Route Start Last Admin Trade Name Freq PRN Reason Stop Dose Admin Acetaminophen 650 mg 11/26/19 22:16 12/01/19 10:22 Tylenol PO 650 mg Q4H PRN Administration Fever >101 Dexamethasone 6 mg 11/28/19 11:00 12/01/19 10:22 Decadron PO 12/07/19 10:01 6 mg DAILY MYRON Administration Enoxaparin Sodium 60 mg 11/29/19 12:00 12/01/19 10:23 Enoxaparin SUB-Q 60 mg BID MYRON Administration Hydralazine HCl 10 mg 11/30/19 14:59 12/01/19 05:49 Apresoline IV 10 mg Q4HR PRN Administration Hypertension Hydrochlorothiazide 50 mg 12/01/19 10:00 12/01/19 10:23 Hctz PO 50 mg QDAY MYRON Administration Insulin Human Lispro 0 unit 11/27/19 11:30 12/01/19 13:13 Humalog SUB-Q 6 unit ACHS MYRON Administration Protocol Lisinopril 20 mg 12/01/19 14:47 Zestril PO QDAY MYRON Ondansetron HCl 4 mg 11/26/19 22:16 Zofran IV Q8H PRN Nausea And Vomiting Sodium Chloride 50 ml 11/28/19 21:00 11/30/19 21:59 Nacl 0.9% IV 12/01/19 21:01 50 ml Q24HR@2100 MYRON Administration
[2019-12-01] MEDS: SODIUM CHLORIDE 0.9% 50 ML IVPB IV SCH (22:07)
[2019-12-01] MEDS: LISINOPRIL 20 MG TAB PO SCH (22:20)
[2019-12-01 22:57] VITALS: BP 183/60
[2019-12-02] MEDS: INSULIN LISPRO 100 UNIT/ML VIAL 3 mL SUB-Q SCH ×3 (07:30→16:30)
[2019-12-02 07:42] LABS: C-Reactive Protein 2.2 mg/dL (0.00-1.30)
[2019-12-02] MEDS ORDERED: METOPROLOL SUCCINATE XL 50 MG TAB PO SCH (10:00)
[2019-12-02] MEDS: ENOXAPARIN 60 MG/0.6 ML INJ SUB-Q SCH (10:12)
[2019-12-02] MEDS: DEXAMETHASONE 4 MG TAB PO SCH (10:13)
[2019-12-02] MEDS: LISINOPRIL 20 MG TAB PO SCH (10:13)
--- NOTE | 2019-12-02 13:24 | Progress Note ---
Assessment and Plan Cultures: Blood culture 11/26/2019 negative COVID PCR: positive A/P: 74-year-old female past medical history hypertension, diabetes, admitted with COVID-19 #Severe COVID-19 pneumonia: Patient presented with 2 days of symptoms, chest x- ray with edema versus infiltrates. On steroids. Completed Remdesivir. #Acute hypoxemic respiratory failure: Likely secondary to COVID-19 infection. on nasal cannula. #Diabetes: tight glycemic control for best outcomes. #Obesity: Associated with worse COVID-19 outcomes. Recs: -Continue Dexamethasone 6 mg IV/PO daily for 10 days, D6 -home oxygen and follow up with PCP -markers with steady improvement, OK for discharge from ID standpoint Taj Mcarthur MD, FACP [facility] ([facility] C: [phone] O: [phone] F: [phone] Subjective Date of service: 12/02/19 Principal diagnosis: JOSEPH, COVID19 Interval history: No fever. Back on oxygen at 2 liter/min due to ambulatory desaturation. Objective - Exam Narrative Exam: Physical Exam (reviewed in chart due to PPE conservation) Constitutional: limited due to PPE conservation strategy Head, Ears, Nose: limited due to PPE conservation strategy Eyes: limited due to PPE conservation strategy Neck: limited due to PPE conservation strategy Oral: limited due to PPE conservation strategy Cardiovascular: limited due to PPE conservation strategy Respiratory: limited due to PPE conservation strategy GI: limited due to PPE conservation strategy Musculoskeletal: limited due to PPE conservation strategy Skin: limited due to PPE conservation strategy Hem/Lymphatic: limited due to PPE conservation strategy Psych: limited due to PPE conservation strategy Neurological: limited due to PPE conservation strategy - Constitutional Vitals: Vital Signs Temp Pulse Resp BP Pulse Ox 98.0 F 58 L 20 183/60 93 12/01/19 22:56 12/01/19 23:44 12/01/19 22:56 12/01/19 23:44 12/01/19 22:56 Temperature -Last 24 Hours Temperature 98.0 F Temperature 97.8 F - Labs CBC & Chem 7: 11/29/19 07:49 12/01/19 07:26 Labs: Abnormal lab results 12/01/19 12/01/19 12/02/19 Range/Units 16:18 23:09 07:11 D-Dimer 1792.73 H (0-234) ng/mlDDU POC Glucose 328 H 340 H (70-105) Ferritin (10.0-200.0) ng/mL Lactate Dehydrogenase (91-180) units/L C-Reactive Protein (0.00-1.30) mg/dL 12/02/19 12/02/19 12/02/19 Range/Units 07:11 07:11 07:53 D-Dimer (0-234) ng/mlDDU POC Glucose 315 H (70-105) Ferritin 718.9 H (10.0-200.0) ng/mL Lactate Dehydrogenase 402 H (91-180) units/L C-Reactive Protein 2.20 H (0.00-1.30) mg/dL 12/02/19 Range/Units 12:31 D-Dimer (0-234) ng/mlDDU POC Glucose 331 H (70-105) Ferritin (10.0-200.0) ng/mL Lactate Dehydrogenase (91-180) units/L C-Reactive Protein (0.00-1.30) mg/dL
--- NOTE | 2019-12-02 14:34 | Discharge Summary ---
Providers - Providers Date of Admission: 11/28/19 11:02 Date of discharge: 12/02/19 Attending physician: LINDA CALIXTO 11/27/19 06:17 Consult to Physician [CONS] Routine Comment: Consulting Provider: ZAN BUENO Physician Instructions: Reason For Exam: SUSPECTED COVID 19 11/27/19 07:19 Consult to Physician [CONS] Routine Comment: Consulting Provider: LUCY ALONSO Physician Instructions: Reason For Exam: joseph Primary care physician: KOLBY PIPER MD Hospitalization Hospital course: This is a 74 F AAF with hypertension and Type 2 DM who presented to the ER with shortness of breath, fever, chills, diffuse body aches on 11/27. As per pt's son she also developed altered mental status, for which EMS was called. Reportedly her sister recently tested positive for COVID19. In the ER she was hypoxic with O2 as low as 88%, labs showed elevated inflammatory parameters incl. D-dimer > 2469, ferritin > 752, LDH > 360, CRP > 19 and CXR showed increased b/l interstitial infiltrates pulmonary edema vs pneumonitis. On 11/26 her COVID PCR was positive. She is s/p Remdesivir (11/27-11/30). She will be discharged with home oxygen and PO dexamethasone to complete her 10 day course. She will need to follow up with her primary care physician within 2 weeks of discharge. (1) Pneumonia due to COVID-19 virus Current Visit: Yes Status: Acute Plan to address problem: -11/26: COVID PCR positive -s/p IV Remdesivir (11/26-11/30) -Dexamethasone PO q day day 10/21 -Prone to sleep as needed -OOB 3 times daily and as needed (2) Acute respiratory failure with hypoxia Current Visit: Yes Status: Acute Plan to address problem: -Likely secondary to COVID pneumonia -Supplemental oxygenation as needed (3) JOSEPH (acute kidney injury) Current Visit: Yes Status: Resolved Plan to address problem: - Admit Cr 1.5 - Trended down to 1 - Likely secondary to vasomotor nephropathy (4) HTN (hypertension) Current Visit: Yes Status: Acute Plan to address problem: -ANTHONY and BB (5) Diabetes Current Visit: Yes Status: Acute Plan to address problem: - Carb controlled diet . Disposition: DC-01 TO HOME OR SELFCARE Time spent for discharge: 35 Core Measure Documentation - Palliative Care Palliative Care/ Comfort Measures: Not Applicable - Core Measures Any of the following diagnoses?: none Exam - Constitutional Vitals: Temp Pulse Resp BP Pulse Ox 98.0 F 58 L 20 183/60 93 12/01/19 22:56 12/01/19 23:44 12/01/19 22:56 12/01/19 23:44 12/01/19 22:56 General appearance: Present: no acute distress - EENT Eyes: Present: PERRL ENT: hearing intact - Neck Neck: Present: supple, normal ROM - Respiratory Respiratory effort: normal Respiratory: bilateral: diminished - Cardiovascular Rhythm: regular Heart Sounds: Present: S1 & S2. Absent: systolic murmur, diastolic murmur - Extremities Extremities: no ischemia, pulses intact, pulses symmetrical, No edema, normal temperature, normal color, Full ROM Peripheral Pulses: within normal limits - Abdominal General gastrointestinal: Present: soft, non-tender, non-distended, normal bowel sounds - Integumentary Integumentary: Present: clear, warm, dry - Musculoskeletal Musculoskeletal: strength equal bilaterally - Psychiatric Psychiatric: appropriate mood/affect, cooperative - Neurologic Neurologic: CNII-XII intact, no focal deficits, moves all extremities - Allied Health Allied health notes reviewed: nursing, social work, case management Plan Activity: advance as tolerated Diet: diabetic Special Instructions: record daily BP diary, home oxygen via Durable Medical Equipment Needed Upon Discharge: Oxygen Additional Instructions: Please follow the COVID 19 guidelines that will be provided to you by your nurse. Please report to the nearest emergency department or call your primary care physician if your symptoms worsen. Please follow-up with your primary care physician within 2 weeks of discharge reevaluation of home oxygenation needs. Please maintain 2 weeks of home quarantine after discharge. If you live with other persons, please encourage them to get tested for COVID-19 also. Please wear a mask around others, clean commonly used surfaces frequently, and maintain social distances of 6 feet when around others. Follow up with: KOLBY PIPER MD [Primary Care Provider] - 3-5 Days Prescriptions: dexAMETHasone [Decadron] 6 mg PO DAILY 5 Days #5 tablet Metoprolol Xl [Metoprolol SUCCINATE ER TAB] 50 mg PO QDAY #30 tablet lisinopriL [Zestril TAB] 40 mg PO BID #60 tablet
== END 2019-12-02 17:25 | disposition home or self-care (01) | DRG 177 ==
LOC: ED 17:12 → 3A 21:42 → OBSVTOIN 11-28 11:02
PROVIDERS: ADMIT Internal Medicine; ATTEND Internal Medicine
PROC: XW033E5 Introduction of Remdesivir Anti-infective into Peripheral Vein, Percutaneous Approach, New Technology Group 5 (ICD-10-PCS; principal; 2019-11-27)
PROC: XW033E5 Introduction of Remdesivir Anti-infective into Peripheral Vein, Percutaneous Approach, New Technology Group 5 (ICD-10-PCS; 2019-11-28)
PROC: XW033E5 Introduction of Remdesivir Anti-infective into Peripheral Vein, Percutaneous Approach, New Technology Group 5 (ICD-10-PCS; 2019-12-01)
DX: U07.1 COVID-19 (principal); J12.89 Other viral pneumonia; J96.01 Acute respiratory failure with hypoxia; N17.0 Acute kidney failure with tubular necrosis; G93.40 Encephalopathy, unspecified; E87.1 Hypo-osmolality and hyponatremia; Z68.41 Body mass index [BMI] 40.0-44.9, adult; E87.6 Hypokalemia; E66.9 Obesity, unspecified; E11.9 Type 2 diabetes mellitus without complications; I10 Essential (primary) hypertension
CPT/HCPCS: 36415; 71045; 80048; 80053; 81001; 82140; 82570; 82728; 82947; 82962; 83036; 83615; 84145; 84156; 84300; 84484; 85025; 85027; 85379; 86140; 87040; G0378; J0360; J0456; J0696; J1644; J1650; J1940; J7040; J7050; J8540; U0003-CS

== ENCOUNTER 2021-01-22 21:27 | Inpatient (IN) | payer MEDICARE ==
[2021-01-22] MEDS ORDERED: cloNIDine 0.2 MG TAB PO ONE (22:02)
--- NOTE | 2021-01-22 22:05 | Emergency Department Report ---
HPI - General Chief Complaint: Altered Mental Status Time Seen by Provider: 01/22/21 21:32 - HPI HPI: Room 17 The patient is a 75-year-old female present with a chief complaint of altered mental status. Patient reportedly brought in by EMS from home for altered mental status. Per EMS patient's last known well time was noon. When asked if anything is bothering the patient replies "I do not know." The patient replies I do not know to most questions posed. Patient answers correctly when asked her name. Per EMS the patient was hyperglycemic with a D stick of 591 ED Past Medical Hx - Past Medical History Previous Medical History?: Yes Hx Hypertension: Yes Hx Diabetes: Yes - Surgical History Past Surgical History?: No - Family History Family history: no significant - Social History Smoking Status: Unknown if ever smoked Substance Use Type: None - Medications Home Medications: Home Medications Medication Instructions Recorded Confirmed Last Taken Type Acetaminophen [Acetaminophen TAB] 650 mg PO Q4H PRN tablet 12/02/19 Unknown Rx Metoprolol Xl [Metoprolol 50 mg PO QDAY #30 tablet 12/02/19 Unknown Rx SUCCINATE ER TAB] dexAMETHasone [Decadron] 6 mg PO DAILY 5 Days #5 tablet 12/02/19 Unknown Rx lisinopriL [Zestril TAB] 40 mg PO BID #60 tablet 12/02/19 Unknown Rx metFORMIN [Glucophage] 500 mg PO BID #60 tablet 12/02/19 Unknown Rx ED Review of Systems ROS: Stated complaint: AMS/HIGH BLOOD SUGAR Other details as noted in HPI Comment: Unobtainable due to pts medical conditions Physical Exam - Physical Exam Vital Signs: Vital Signs 01/22/21 21:45 Temperature 98.5 F Pulse Rate 96 H Respiratory 15 Rate Blood Pressure 223/96 [Left] O2 Sat by Pulse 96 Oximetry Physical Exam: GENERAL: The patient is well-developed well-nourished female lying on stretcher not appearing to be in acute distress. [] HEENT: Normocephalic. Atraumatic. Extraocular motions are intact. Patient has moist mucous membranes. NECK: Supple. Trachea midline CHEST/LUNGS: Clear to auscultation. There is no respiratory distress noted. HEART/CARDIOVASCULAR: Regular. There is no tachycardia. There is no gallop rub or murmur. ABDOMEN: Abdomen is soft, nontender. Patient has normal bowel sounds. There is no abdominal distention. SKIN: There is no rash. There is no edema. There is no diaphoresis. NEURO: The patient is awake and alert. The patient is not fully cooperative with neurologic exam and appears confused at times when given commands. The patient does move all extremities but does not completely follow commands. The patient has normal speech MUSCULOSKELETAL: There is no evidence of acute injury. ED Course Vital Signs 01/22/21 21:45 Temperature 98.5 F Pulse Rate 96 H Respiratory 15 Rate Blood Pressure 223/96 [Left] O2 Sat by Pulse 96 Oximetry ED Medical Decision Making - Lab Data Result diagrams: 01/22/21 21:58 01/22/21 21:58 Laboratory Tests 01/22/21 01/22/21 01/22/21 21:58 21:58 21:58 WBC 6.2 RBC 3.93 Hgb 12.5 Hct 37.8 MCV 96 MCH 32 MCHC 33 RDW 14.3 Plt Count 234 Lymph % (Auto) 34.0 [place] % (Auto) 9.4 H Eos % (Auto) 3.0 Baso % (Auto) 1.1 Lymph # (Auto) 2.1 [place] # (Auto) 0.6 Eos # (Auto) 0.2 Baso # (Auto) 0.1 Seg Neutrophils % 52.5 Seg Neutrophils # 3.3 VBG pH Sodium 135 L Potassium 4.2 Chloride 98.2 Carbon Dioxide 22 Anion Gap 19 BUN 16 Creatinine 1.1 Estimated GFR 58 BUN/Creatinine Ratio 15 Glucose 530 H* Lactic Acid Calcium 9.2 Total Bilirubin 0.40 AST 16 ALT 13 Alkaline Phosphatase 69 Ammonia 24.0 L Total Creatine Kinase 450 H CK-MB (CK-2) 3.7 CK-MB (CK-2) Rel Index 0.8 Troponin T < 0.010 Total Protein 7.0 Albumin 3.6 L Albumin/Globulin Ratio 1.1 Lipase 230 H TSH Free T4 Plasma/Serum Alcohol 01/22/21 01/22/21 01/22/21 21:58 21:58 21:58 WBC RBC Hgb Hct MCV MCH MCHC RDW Plt Count Lymph % (Auto) [place] % (Auto) Eos % (Auto) Baso % (Auto) Lymph # (Auto) [place] # (Auto) Eos # (Auto) Baso # (Auto) Seg Neutrophils % Seg Neutrophils # VBG pH 7.383 Sodium Potassium Chloride Carbon Dioxide Anion Gap BUN Creatinine Estimated GFR BUN/Creatinine Ratio Glucose Lactic Acid 3.10 H* Calcium Total Bilirubin AST ALT Alkaline Phosphatase Ammonia Total Creatine Kinase CK-MB (CK-2) CK-MB (CK-2) Rel Index Troponin T Total Protein Albumin Albumin/Globulin Ratio Lipase TSH 3.100 Free T4 1.04 Plasma/Serum Alcohol 01/22/21 21:58 WBC RBC Hgb Hct MCV MCH MCHC RDW Plt Count Lymph % (Auto) [place] % (Auto) Eos % (Auto) Baso % (Auto) Lymph # (Auto) [place] # (Auto) Eos # (Auto) Baso # (Auto) Seg Neutrophils % Seg Neutrophils # VBG pH Sodium Potassium Chloride Carbon Dioxide Anion Gap BUN Creatinine Estimated GFR BUN/Creatinine Ratio Glucose Lactic Acid Calcium Total Bilirubin AST ALT Alkaline Phosphatase Ammonia Total Creatine Kinase CK-MB (CK-2) CK-MB (CK-2) Rel Index Troponin T Total Protein Albumin Albumin/Globulin Ratio Lipase TSH Free T4 Plasma/Serum Alcohol < 0.01 - EKG Data -: EKG Interpreted by Me EKG shows normal: sinus rhythm Rate: normal - EKG Data When compared to previous EKG there are: previous EKG unavailable Interpretation: other (No ischemic changes seen) - Radiology Data Radiology results: report reviewed (Chest x-ray), image reviewed (Chest x-ray) interpreted by me: Chest x-ray-no definite focal infiltrates, no pneumothorax [address] [address] XRay Report Signed Patient: HUE BONILLA MR #: [id number] : 1945 Acct:[id number] Age/Sex: 75 / F ADM Date: 01/22/21 Loc: ED Attending Dr: Ordering Physician: SAMUEL BERNAL MD Date of Service: 01/22/21 Procedure(s): XR chest 1V ap Accession Number(s): [id number] cc: SAMUEL BERNAL MD Fluoro Time In Minutes: CHEST 1 VIEW 01/22/2021 9:38 PM INDICATION / CLINICAL INFORMATION: Altered mental status, hypertension. COMPARISON: Chest x-ray 11/26/2019 FINDINGS: SUPPORT DEVICES: None. HEART / MEDIASTINUM: No significant abnormality. LUNGS / PLEURA: No significant pulmonary or pleural abnormality. No pneumothorax. ADDITIONAL FINDINGS: No significant additional findings. IMPRESSION: 1. No acute findings. Signer Name: Michael Erwin MD Signed: 01/22/2021 10:43 PM Workstation Name: [id number] Transcribed By: TL Dictated By: Michael Erwin MD Electronically Authenticated By: Michael Erwin MD Signed Date/Time: 01/22/212242 DD/ 41 TD/TT: Print Cancel [facility] [address] [place] [address] Cat Scan Report Signed Patient: HUE BONILLA MR #: [id number] : 1945 Acct:[id number] Age/Sex: 75 / F ADM Date: 01/22/21 Loc: ED Attending Dr: Ordering Physician: SAMUEL BERNAL MD Date of Service: 01/22/21 Procedure(s): CT head/brain wo con Accession Number(s): [id number] cc: SAMUEL BERNAL MD CT HEAD WITHOUT CONTRAST INDICATION / CLINICAL INFORMATION: Altered Mental Status. TECHNIQUE: All CT scans at this location are performed using CT dose reduction for ALARA by means of automated exposure control. COMPARISON: None available. FINDINGS: HEMORRHAGE: None. EXTRA-AXIAL SPACES: Normal in size and m orphology for the patient's age. VENTRICULAR SYSTEM: Normal in size and morphology for the patient's age. CEREBRAL PARENCHYMA: No significant abnormality. No acute territorial infarct. MIDLINE SHIFT / HERNIATION: None. CEREBELLUM / BRAINSTEM: No significant abnormality. ORBITS: Bilateral lens replacements. SOFT TISSUES: No significant abnormality. SKULL: No significant abnormality. PARANASAL SINUSES / MASTOID AIR CELLS: Normal as visualized. ADDITIONAL FINDINGS: None. IMPRESSION: 1. No acute CT abnormality. Signer Name: Blu Salcedo MD Signed: 01/22/2021 10:37 PM Workstation Name: [id number] Transcribed By: DB Dictated By: BLU SALCEDO MD Electronically Authenticated By: BLU SALCEDO MD Signed Date/Time: 01/22/212236 DD/ 33 TD/TT: Print Cancel - Differential Diagnosis DKA, AMS, ICH, hypertensive urgency Critical care attestation.: If time is entered above; I have spent that time in minutes in the direct care of this critically ill patient, excluding procedure time. ED Disposition Clinical Impression: Altered mental state, Uncontrolled hypertension Disposition: ADMITTED INPATIENT Is pt being admited?: Yes Does the pt Need Aspirin: Yes Condition: Fair Instructions: Hypertension (ED) Referrals: PRIMARY CARE, [Primary Care Provider] - 3-5 Days Time of Disposition: 23:29 (Hospitalist called ( Dr De Leon))
[2021-01-22 22:38] LABS: Creatine Kinase MB 3.7 ng/mL (0.0-4.0)
[2021-01-22 22:40] LABS: Alanine Aminotransferase 13 units/L (7-56); Albumin 3.6 g/dL (3.9-5); BUN/Creatinine Ratio 15; Blood Urea Nitrogen 16 mg/dL (7-17); Calcium 9.2 mg/dL (8.4-10.2); Hemolysis Index 15
[2021-01-22 22:41] LABS: Free T4 (Free Thyroxine) 1.04 ng/dL (0.76-1.46)
--- NOTE | 2021-01-22 22:42 | Cat Scan Report ---
CT HEAD WITHOUT CONTRAST INDICATION / CLINICAL INFORMATION: Altered Mental Status. TECHNIQUE: All CT scans at this location are performed using CT dose reduction for ALARA by means of automated exposure control. COMPARISON: None available. FINDINGS: HEMORRHAGE: None. EXTRA-AXIAL SPACES: Normal in size and morphology for the patient's age. VENTRICULAR SYSTEM: Normal in size and morphology for the patient's age. CEREBRAL PARENCHYMA: No significant abnormality. No acute territorial infarct. MIDLINE SHIFT / HERNIATION: None. CEREBELLUM / BRAINSTEM: No significant abnormality. ORBITS: Bilateral lens replacements. SOFT TISSUES: No significant abnormality. SKULL: No significant abnormality. PARANASAL SINUSES / MASTOID AIR CELLS: Normal as visualized. ADDITIONAL FINDINGS: None. IMPRESSION: 1. No acute CT abnormality. Signer Name: Blu Salcedo MD Signed: 01/22/2021 10:37 PM Workstation Name: [id number]
[2021-01-22 22:47] LABS: Basophils # (Auto) 0.1 K/mm3 (0.0-0.1); Basophils % (Auto) 1.1 % (0.0-1.8); Eosinophils # (Auto) 0.2 K/mm3 (0.0-0.4); Hematocrit 37.8 % (30.3-42.9); Hemoglobin 12.5 gm/dl (10.1-14.3); Lymphocytes # (Auto) 2.1 K/mm3 (1.2-5.4); Mean Corpuscular HGB Conc 33 % (30-34); Mean Corpuscular Volume 96 fl (79-97); Monocytes # (Auto) 0.6 K/mm3 (0.0-0.8); Monocytes % (Auto) 9.4 % (0.0-7.3); Platelet Count 234 K/mm3 (140-440); Red Blood Count 3.93 M/mm3 (3.65-5.03); Red Cell Distribution Width 14.3 % (13.2-15.2)
--- NOTE | 2021-01-22 22:47 | XRay Report ---
CHEST 1 VIEW 01/22/2021 9:38 PM INDICATION / CLINICAL INFORMATION: Altered mental status, hypertension. COMPARISON: Chest x-ray 11/26/2019 FINDINGS: SUPPORT DEVICES: None. HEART / MEDIASTINUM: No significant abnormality. LUNGS / PLEURA: No significant pulmonary or pleural abnormality. No pneumothorax. ADDITIONAL FINDINGS: No significant additional findings. IMPRESSION: 1. No acute findings. Signer Name: Michael Erwin MD Signed: 01/22/2021 10:43 PM Workstation Name: [id number]
[2021-01-22] MEDS ORDERED: INSULIN REGULAR, HUMAN 100 UNITS/1 ML IV ONE (22:49)
[2021-01-22] MEDS ORDERED: SODIUM CHLORIDE 0.9% 1000 ML 1,000 ML IV ONE (22:49)
[2021-01-22] MEDS ORDERED: ASPIRIN 325 MG TAB PO ONE (23:29)
[2021-01-23] MEDS ORDERED: hydrALAZINE 20 MG/1 ML INJ IV ONE ×3 (00:03→06:28)
[2021-01-23] MEDS ORDERED: ACETAMINOPHEN 325 MG TAB PO PRN ×3 (00:04→11:07)
[2021-01-23] MEDS ORDERED: PROMETHAZINE 25 MG RECT SUPP PR PRN (00:04)
[2021-01-23] MEDS ORDERED: MORPHINE 2 MG/1 ML INJ IV PRN ×2 (00:04)
[2021-01-23] MEDS ORDERED: METOCLOPRAMIDE 10 MG TAB PO PRN (00:04)
[2021-01-23] MEDS ORDERED: ONDANSETRON 4 MG/2 ML INJ IV PRN ×2 (00:04)
[2021-01-23] MEDS ORDERED: DEXTROSE 50% IN WATER (25GM) 50 ML SYRINGE IV PRN (00:04)
[2021-01-23] MEDS ORDERED: MAGNESIUM HYDROXIDE (MOM) ORAL LIQD UDC PO PRN ×2 (00:04)
[2021-01-23] MEDS ORDERED: MORPHINE 4 MG/1 ML INJ IV PRN ×2 (00:04)
[2021-01-23] MEDS ORDERED: ASPIRIN 300 MG RECT SUPP PR ONE (00:21)
--- NOTE | 2021-01-23 00:30 | History and Physical Report ---
History of Present Illness Date of examination: 01/23/21 Date of admission: 01/23/2021 Chief complaint: Altered mental Status History of present illness: 75-year-old female with known history of hypertension and diabetes mellitus presents to the emergency room today with altered mental status. Last well- known time was at about noon. Most of the history was gotten from the ER staff as patient is unable to give any good history and family currently unavailable. Initial blood glucose was elevated at about 591. She also had elevated blood pressure of 210 systolic and low 100 in the diastolic upon arrival. She had IV labetalol and guidelines in the emergency room with some improvement in her blood pressure. Work-up in the emergency room today, CT scan of the head was unremarkable. Chest x-ray also did not reveal any acute abnormality. Labs reveals lactic acid of 3.0., Creatinine kinase of 450. Past History Past Medical History: diabetes, hypertension Past Surgical History: No surgical history Social history: no significant social history Family history: no significant family history Medications and Allergies Allergies Allergy/AdvReac Type Severity Reaction Status Date / Time No Known Allergies Allergy Unverified 11/26/19 19:22 Home Medications Medication Instructions Recorded Confirmed Last Taken Type Acetaminophen [Acetaminophen TAB] 650 mg PO Q4H PRN tablet 12/02/19 Unknown Rx Metoprolol Xl [Metoprolol 50 mg PO QDAY #30 tablet 12/02/19 Unknown Rx SUCCINATE ER TAB] dexAMETHasone [Decadron] 6 mg PO DAILY 5 Days #5 tablet 12/02/19 Unknown Rx lisinopriL [Zestril TAB] 40 mg PO BID #60 tablet 12/02/19 Unknown Rx metFORMIN [Glucophage] 500 mg PO BID #60 tablet 12/02/19 Unknown Rx Active Meds: Active Medications Acetaminophen (Acetaminophen 325 Mg Tab) 650 mg PO Q4H PRN PRN Reason: Pain MILD(1-3)/Fever >100.5/ABREU Acetaminophen (Acetaminophen 325 Mg Tab) 650 mg PO Q4H PRN PRN Reason: Pain, Mild (1-3) Aspirin (Aspirin 325 Mg Tab) 325 mg PO QDAY MYRON Bisacodyl (Bisacodyl 10 Mg Rect Supp) 10 mg [place] QDAY PRN PRN Reason: Constipation Dextrose (Dextrose 50% In Water (25gm) 50 Ml Syringe) 50 ml IV Q30MIN PRN; Protocol PRN Reason: Hypoglycemia Dextrose (Dextrose 50% In Water (25gm) 50 Ml Syringe) 50 ml IV Q30MIN PRN; Protocol PRN Reason: Hypoglycemia Heparin Sodium (Porcine) (Heparin 5,000 Unit/1 Ml Vial) 5,000 unit SUB-Q Q8HR MYRON Sodium Chloride (Nacl 0.9% 1000 Ml) 1,000 mls @ 75 mls/hr IV DIRECT MYRON Insulin Human Lispro (Insulin Lispro 100 Unit/Ml) 0 unit SUB-Q ACHS MYRON; Protocol Magnesium Hydroxide (Magnesium Hydroxide (Mom) Oral Liqd Udc) 30 ml PO Q4H PRN PRN Reason: Constipation Magnesium Hydroxide (Magnesium Hydroxide (Mom) Oral Liqd Udc) 30 ml PO Q4H PRN PRN Reason: Constipation Metoclopramide HCl (Metoclopramide 10 Mg Tab) 10 mg PO Q6H PRN PRN Reason: Nausea And Vomiting Morphine Sulfate (Morphine 2 Mg/1 Ml Inj) 2 mg IV Q4H PRN PRN Reason: Pain, Moderate (4-6) Morphine Sulfate (Morphine 4 Mg/1 Ml Inj) 4 mg IV Q4H PRN PRN Reason: Pain , Severe (7-10) Morphine Sulfate (Morphine 2 Mg/1 Ml Inj) 2 mg IV Q4H PRN PRN Reason: Pain, Moderate (4-6) Morphine Sulfate (Morphine 4 Mg/1 Ml Inj) 4 mg IV Q4H PRN PRN Reason: Pain , Severe (7-10) Ondansetron HCl (Ondansetron 4 Mg/2 Ml Inj) 4 mg IV Q8H PRN PRN Reason: Nausea And Vomiting Ondansetron HCl (Ondansetron 4 Mg/2 Ml Inj) 4 mg IV Q8H PRN PRN Reason: Nausea And Vomiting Promethazine HCl (Promethazine 25 Mg Rect Supp) 25 mg [place] Q6H PRN PRN Reason: Nausea And Vomiting Sodium Chloride (Sodium Chloride 0.9% 10 Ml Flush Syringe) 10 ml IV BID MYRON Sodium Chloride (Sodium Chloride 0.9% 10 Ml Flush Syringe) 10 ml IV PRN PRN PRN Reason: LINE FLUSH Sodium Chloride (Sodium Chloride 0.9% 10 Ml Flush Syringe) 10 ml INJ PRN PRN PRN Reason: LINE FLUSH Review of Systems ROS unobtainable: due to mental status Exam - Constitutional Vitals: Temp Pulse Resp BP Pulse Ox 98.5 F 80 15 223/145 96 01/22/21 21:45 01/22/21 22:40 01/22/21 21:45 01/22/21 22:40 01/22/21 21:45 General appearance: Present: no acute distress, well-nourished, obese - EENT Eyes: Present: PERRL, EOM intact. Absent: scleral icterus ENT: hearing intact, clear oral mucosa, dentition normal - Neck Neck: Present: supple, normal ROM - Respiratory Respiratory effort: normal Respiratory: bilateral: CTA - Cardiovascular Rhythm: regular Heart Sounds: Present: S1 & S2. Absent: gallop, systolic murmur, diastolic murmur, rub, click - Extremities Extremities: no ischemia, pulses intact, pulses symmetrical, No edema, normal temperature, normal color, Full ROM Peripheral Pulses: within normal limits - Abdominal General gastrointestinal: Present: soft, non-tender, non-distended, normal bowel sounds. Absent: mass - Integumentary Integumentary: Present: clear, warm, dry. Absent: rash - Musculoskeletal Musculoskeletal: strength equal bilaterally - Psychiatric Psychiatric: cooperative - Neurologic Neurologic: CNII-XII intact, no focal deficits, moves all extremities, other (Confused) HEART Score - HEART Score Troponin: Troponin T < 0.010 ng/mL (0.00-0.029) 01/22/21 21:58 Results - Labs CBC & Chem 7: 01/22/21 21:58 01/22/21 21:58 Labs: Abnormal lab results 01/22/21 01/22/21 01/22/21 Range/Units 21:58 21:58 21:58 [place] % (Auto) 9.4 H (0.0-7.3) % Sodium 135 L (137-145) mmol/L Glucose 530 H* (65-100) mg/dL Lactic Acid (0.7-2.0) mmol/L Ammonia 24.0 L (25-60) umol/L Total Creatine Kinase 450 H (30-135) units/L Albumin 3.6 L (3.9-5) g/dL Lipase 230 H (13-60) units/L 01/22/21 01/22/21 Range/Units 21:58 23:34 [place] % (Auto) (0.0-7.3) % Sodium (137-145) mmol/L Glucose (65-100) mg/dL Lactic Acid 3.10 H* 3.00 H* (0.7-2.0) mmol/L Ammonia (25-60) umol/L Total Creatine Kinase (30-135) units/L Albumin (3.9-5) g/dL Lipase (13-60) units/L Assessment and Plan - Patient Problems (1) Acute encephalopathy Current Visit: No Status: Acute Plan to address problem: Etiology is unclear. Work-up so far has been negative. We will check MRI of the brain to rule out CVA. Consult placed to neurology for evaluation. (2) Uncontrolled hypertension Current Visit: Yes Status: Acute Plan to address problem: Patient has been placed on IV hydralazine as needed for blood pressure control. Will monitor vital signs closely. (3) Diabetes Current Visit: No Status: Acute Plan to address problem: Patient placed on IV fluid and sliding scale insulin. We will monitor Accu-Cheks. (4) Lactic acidosis Current Visit: Yes Status: Acute Plan to address problem: No obvious source of infection. Urinalysis currently being awaited We will place on IV fluid and monitor chemistry. (5) DVT prophylaxis Current Visit: No Status: Acute Plan to address problem: Patient placed on subcutaneous heparin. (6) Full code status Current Visit: Yes Status: Acute Plan to address problem: Patient is full code.
[2021-01-23] MEDS: HEPARIN 5,000 UNIT/1 ML VIAL SUB-Q SCH ×3 (06:12→22:39)
[2021-01-23] MEDS ORDERED: hydrALAZINE 20 MG/1 ML INJ ONE (06:29)
[2021-01-23] MEDS: SODIUM CHLORIDE 0.9% 1000 ML 1,000 ML IV SCH (06:39)
[2021-01-23 07:03] LABS: Bilirubin,Urine NEG (Negative); Blood,Urine SM (Negative); Color,Urine Colorless (Yellow); Protein,Urine <15 mg/dL mg/dL (Negative); Urobilinogen,Urine < 2.0 mg/dL (<2.0); WBC,Urine < 1.0 /HPF (0.0-6.0)
[2021-01-23] MEDS: INSULIN LISPRO 100 UNIT/ML SUB-Q SCH ×4 (09:44→22:42)
[2021-01-23] MEDS: ASPIRIN 325 MG TAB PO SCH (09:44)
--- NOTE | 2021-01-23 10:44 | Electrocardiograph Report ---
[facility] Test Date: 2021-01-22 Test Time: 23:20:29 Pat Name: HUE BONILLA Department: Room: [place] [address] Gender: F Metal [employer]ayer [employer] Coating: JANNET : 1945 Requested By: SAMUEL BERNAL Order Number: [id number] [place] MD: Rakesh Jade Measurements Intervals [place] Rate: 73 P: 70 [place]: 198 QRS: 0 QRSD: 89 T: 44 QT: 407 QTc: 449 Interpretive Statements Sinus rhythm [id number] No previous ECG available for comparison Electronically Signed On 01-23-2021 10:43:49 EDT by Rakesh Jade
--- NOTE | 2021-01-23 11:09 | Progress Note ---
Assessment and Plan Assessment and plan: Metabolic encephalopathy Accelerated hypertension Diabetes mellitus type 2, uncontrolled Lactic acidosis DVT prophylaxis 01/23/2021. Patient remains confused and somnolent. Patient with systolic bl ood pressure of 233. We will resume home medications of lisinopril and metoprolol. I will consider additional medications if no improvement with home medications. Will resume Glucophage for diabetes. Continue SSRI and Accu- Cheks. History Interval history: Patient remains confused and somnolent Hospitalist Physical - Constitutional Vitals: Temp Pulse Resp BP Pulse Ox 98.5 F 105 H 30 H 172/65 93 01/22/21 21:45 01/23/21 06:50 01/23/21 06:50 01/23/21 06:50 01/23/21 06:50 General appearance: Present: mild distress, well-nourished, obese - EENT Eyes: Present: PERRL, EOM intact ENT: hearing intact, clear oral mucosa, dentition normal - Neck Neck: Present: supple, normal ROM - Respiratory Respiratory effort: normal Respiratory: bilateral: CTA - Cardiovascular Rhythm: regular Heart Sounds: Present: S1 & S2. Absent: gallop, rub - Extremities Extremities: no ischemia, No edema, Full ROM - Abdominal General gastrointestinal: soft, non-tender, non-distended, normal bowel sounds - Integumentary Integumentary: Present: clear, warm, dry - Neurologic Neurologic: moves all extremities, other (Confused, encephalopathic) HEART Score - HEART Score Troponin: Troponin T < 0.010 ng/mL (0.00-0.029) 01/22/21 21:58 Results - Labs CBC & Chem 7: 01/22/21 21:58 01/22/21 21:58 Labs: Laboratory Last Values WBC 6.2 K/mm3 (4.5-11.0) 01/22/21 21:58 RBC 3.93 M/mm3 (3.65-5.03) 01/22/21 21:58 Hgb 12.5 gm/dl (10.1-14.3) 01/22/21 21:58 Hct 37.8 % (30.3-42.9) 01/22/21 21:58 MCV 96 fl (79-97) 01/22/21 21:58 MCH 32 pg (28-32) 01/22/21 21:58 MCHC 33 % (30-34) 01/22/21 21:58 RDW 14.3 % (13.2-15.2) 01/22/21 21:58 Plt Count 234 K/mm3 (140-440) 01/22/21 21:58 Lymph % (Auto) 34.0 % (13.4-35.0) 01/22/21 21:58 [place] % (Auto) 9.4 % (0.0-7.3) H 01/22/21 21:58 Eos % (Auto) 3.0 % (0.0-4.3) 01/22/21 21:58 Baso % (Auto) 1.1 % (0.0-1.8) 01/22/21 21:58 Lymph # (Auto) 2.1 K/mm3 (1.2-5.4) 01/22/21 21:58 [place] # (Auto) 0.6 K/mm3 (0.0-0.8) 01/22/21 21:58 Eos # (Auto) 0.2 K/mm3 (0.0-0.4) 01/22/21 21:58 Baso # (Auto) 0.1 K/mm3 (0.0-0.1) 01/22/21 21:58 Seg Neutrophils % 52.5 % (40.0-70.0) 01/22/21 21:58 Seg Neutrophils # 3.3 K/mm3 (1.8-7.7) 01/22/21 21:58 VBG pH 7.383 (7.320-7.420) 01/22/21 21:58 Sodium 135 mmol/L (137-145) L 01/22/21 21:58 Potassium 4.2 mmol/L (3.6-5.0) 01/22/21 21:58 Chloride 98.2 mmol/L (98-107) 01/22/21 21:58 Carbon Dioxide 22 mmol/L (22-30) 01/22/21 21:58 Anion Gap 19 mmol/L 01/22/21 21:58 BUN 16 mg/dL (7-17) 01/22/21 21:58 Creatinine 1.1 mg/dL (0.6-1.2) 01/22/21 21:58 Estimated GFR 58 ml/min 01/22/21 21:58 BUN/Creatinine Ratio 15 % 01/22/21 21:58 Glucose 530 mg/dL (65-100) H* 01/22/21 21:58 POC Glucose 339 mg/dL (70-105) H 01/23/21 08:55 Lactic Acid 3.90 mmol/L (0.7-2.0) H* 01/23/21 05:11 Calcium 9.2 mg/dL (8.4-10.2) 01/22/21 21:58 Total Bilirubin 0.40 mg/dL (0.1-1.2) 01/22/21 21:58 AST 16 units/L (5-40) 01/22/21 21:58 ALT 13 units/L (7-56) 01/22/21 21:58 Alkaline Phosphatase 69 units/L (35-129) 01/22/21 21:58 Ammonia 24.0 umol/L (25-60) L 01/22/21 21:58 Total Creatine Kinase 450 units/L (30-135) H 01/22/21 21:58 CK-MB (CK-2) 3.7 ng/mL (0.0-4.0) 01/22/21 21:58 CK-MB (CK-2) Rel Index 0.8 (0-4) 01/22/21 21:58 Troponin T < 0.010 ng/mL (0.00-0.029) 01/22/21 21:58 Total Protein 7.0 g/dL (6.3-8.2) 01/22/21 21:58 Albumin 3.6 g/dL (3.9-5) L 01/22/21 21:58 Albumin/Globulin Ratio 1.1 % 01/22/21 21:58 Lipase 230 units/L (13-60) H 01/22/21 21:58 TSH 3.100 mlU/mL (0.270-4.200) 01/22/21 21:58 Free T4 1.04 ng/dL (0.76-1.46) 01/22/21 21:58 Urine Color Colorless (Yellow) 01/23/21 Unknown Urine Turbidity Clear (Clear) 01/23/21 Unknown Urine pH 5.0 (5.0-7.0) 01/23/21 Unknown Ur Specific [place] 1.014 (1.003-1.030) 01/23/21 Unknown Urine Protein <15 mg/dl mg/dL (Negative) 01/23/21 Unknown Urine Glucose (UA) >=500 mg/dL (Negative) 01/23/21 Unknown Urine Ketones 20 mg/dL (Negative) 01/23/21 Unknown Urine Blood Sm (Negative) 01/23/21 Unknown Urine Nitrite Neg (Negative) 01/23/21 Unknown Urine Bilirubin Neg (Negative) 01/23/21 Unknown Urine Urobilinogen < 2.0 mg/dL (<2.0) 01/23/21 Unknown Ur Leukocyte Esterase Neg (Negative) 01/23/21 Unknown Urine WBC (Auto) < 1.0 /HPF (0.0-6.0) 01/23/21 Unknown Urine RBC (Auto) 2.0 /HPF (0.0-6.0) 01/23/21 Unknown Plasma/Serum Alcohol < 0.01 % (0-0.07) 01/22/21 21:58 Active Medications - Current Medications Current Medications: Generic Name Dose Route Start Last Admin Trade Name Freq PRN Reason Stop Dose Admin Acetaminophen 650 mg 01/23/21 00:04 Acetaminophen 325 Mg Tab PO Q4H PRN Pain MILD(1-3)/Fever >100.5/ABREU Aspirin 325 mg 01/23/21 10:00 01/23/21 09:44 Aspirin 325 Mg Tab PO 325 mg QDAY MYRON Administration Bisacodyl 10 mg 01/23/21 00:04 Bisacodyl 10 Mg Rect Supp [place] QDAY PRN Constipation Dextrose 50 ml 01/23/21 00:04 Dextrose 50% In Water (25gm) 50 Ml Syringe IV Q30MIN PRN Hypoglycemia Protocol Heparin Sodium (Porcine) 5,000 unit 01/23/21 06:00 01/23/21 06:12 Heparin 5,000 Unit/1 Ml Vial SUB-Q 5,000 unit Q8HR MYRON Administration Sodium Chloride 1,000 mls @ 75 mls/hr 01/23/21 00:15 01/23/21 08:44 Nacl 0.9% 1000 Ml IV 125 mls/hr DIRECT MYRON Infusion Insulin Human Lispro 0 unit 01/23/21 07:30 01/23/21 09:44 Insulin Lispro 100 Unit/Ml SUB-Q 6 unit ACHS MYRON Administration Protocol Magnesium Hydroxide 30 ml 01/23/21 00:04 Magnesium Hydroxide (Mom) Oral Liqd Udc PO Q4H PRN Constipation Metoclopramide HCl 10 mg 01/23/21 00:04 Metoclopramide 10 Mg Tab PO Q6H PRN Nausea And Vomiting Morphine Sulfate 2 mg 01/23/21 00:04 Morphine 2 Mg/1 Ml Inj IV Q4H PRN Pain, Moderate (4-6) Morphine Sulfate 4 mg 01/23/21 00:04 Morphine 4 Mg/1 Ml Inj IV Q4H PRN Pain , Severe (7-10) Ondansetron HCl 4 mg 01/23/21 00:04 01/23/21 03:03 Ondansetron 4 Mg/2 Ml Inj IV 4 mg Q8H PRN Administration Nausea And Vomiting Promethazine HCl 25 mg 01/23/21 00:04 Promethazine 25 Mg Rect Supp [place] Q6H PRN Nausea And Vomiting Sodium Chloride 10 ml 01/23/21 10:00 01/23/21 09:45 Sodium Chloride 0.9% 10 Ml Flush Syringe IV Not Given BID MYRON Sodium Chloride 10 ml 01/23/21 00:04 Sodium Chloride 0.9% 10 Ml Flush Syringe IV PRN PRN LINE FLUSH
[2021-01-23] MEDS ORDERED: DEXAMETHASONE 4 MG TAB PO SCH (12:00)
--- NOTE | 2021-01-23 12:13 | Vascular Lab Report ---
"DUPLEX DOPPLER ULTRASOUND CAROTID, BILATERAL INDICATION: stroke. Carotid bruit. FINDINGS: RIGHT CAROTID: Mild to moderate atherosclerotic plaque. Right CCA velocity: 84 cm/sec. Right ICA peak systolic velocity: 97 cm/sec. ICA/CCA PSV Ratio: 1.2. Right Vertebral Artery: Antegrade flow. LEFT CAROTID: Mild to moderate atherosclerotic plaque. Left CCA velocity: 120 cm/sec. Left ICA peak systolic velocity: 90 cm/sec. ICA/CCA PSV Ratio: 0.8. Left Vertebral Artery: Antegrade flow. IMPRESSION: 1. Right Internal Carotid Artery: Less than 50% diameter stenosis. 2. Left Internal Carotid Artery: Less than 50% diameter stenosis. Velocity criteria are extrapolated from diameter data as defined by the Society of Radiologists in Ul trasound Consensus Conference, Radiology 2003; 229;340-346. Degree of || ICA PSV || Plaque || ICA/CCA Stenosis (%) || (cm/sec) || estimate (%) || PSV Ratio - Normal...............<125..............None.................<2.0 - <50....................<125..............<50....................<2.0 - 50-69................125-230.........>50....................2.0-4.0 - >70 but <100....>230..............>50....................>4.0 - Near...................High, low, .....visible................variable occlusion or none - Total...................None.............visible;................N/A occlusion no lumen Signer Name: Niraj Diaz MD Signed: 01/23/2021 12:08 PM Workstation Name: [id number]"
--- NOTE | 2021-01-23 13:17 | Magnetic Resonance Report ---
MRI BRAIN 01/23/2021 INDICATION / CLINICAL INFORMATION: stroke, AMS. TECHNIQUE: Multiplanar, multisequence MR images of the brain were obtained. COMPARISON: None available. FINDINGS: BRAIN / INTRACRANIAL CONTENTS: Unenhanced MR images of the brain demonstrate no evidence of acute int racranial abnormality. Ventricles and sulci are normal in size and shape for a patient of this age. There is no evidence of acute ischemic injury, hemorrhage, or mass. The brain parenchyma is well pres erved for age. EXTRACRANIAL: Unremarkable CRANIOCERVICAL JUNCTION: No significant abnormality. VASCULAR FLOW-VOIDS: No significant abnormality. IMPRESSION: No acute abnormality. Mild chronic and age-related changes. Signer Name: Gabino Huffman MD Signed: 01/23/2021 1:12 PM Workstation Name: [email or web address]
[2021-01-23] MEDS: metFORMIN 500 MG TAB PO SCH (18:04)
[2021-01-23] MEDS ORDERED: LISINOPRIL 20 MG TAB PO SCH (22:00)
[2021-01-23] MEDS: LISINOPRIL 40 MG TAB PO SCH (22:43)
[2021-01-24] MEDS: HEPARIN 5,000 UNIT/1 ML VIAL SUB-Q SCH (05:09)
[2021-01-24] MEDS: SODIUM CHLORIDE 0.9% 1000 ML 1,000 ML IV SCH (05:10)
[2021-01-24 06:13] LABS: Basophils # (Auto) 0.1 K/mm3 (0.0-0.1); Eosinophils # (Auto) 0.1 K/mm3 (0.0-0.4); Eosinophils % (Auto) 1.8 % (0.0-4.3); Hematocrit 35.2 % (30.3-42.9); Hemoglobin 12.1 gm/dl (10.1-14.3); Lymphocytes # (Auto) 2.7 K/mm3 (1.2-5.4); Lymphocytes % (Auto) 36.4 % (13.4-35.0); Mean Corpuscular HGB Conc 34 % (30-34); Mean Corpuscular Volume 96 fl (79-97); Monocytes # (Auto) 0.7 K/mm3 (0.0-0.8); Monocytes % (Auto) 9.2 % (0.0-7.3); Platelet Count 230 K/mm3 (140-440); Red Blood Count 3.68 M/mm3 (3.65-5.03); Red Cell Distribution Width 14.6 % (13.2-15.2)
[2021-01-24 06:21] LABS: INR 0.95 (0.87-1.13)
[2021-01-24 06:51] LABS: BUN/Creatinine Ratio 20; Blood Urea Nitrogen 20 mg/dL (7-17); Calcium 9.2 mg/dL (8.4-10.2); HDL Cholesterol 56 mg/dL (40-59); Hemolysis Index 31; LDL Cholesterol,Direct 84 mg/dL (50-130)
--- NOTE | 2021-01-24 09:03 | Consultation ---
History of Present Illness Consult date: 01/24/21 Reason for Consult: r/o stroke Chief complaint: Confusion History of present illness: 75 yo female with htn, dm, who presents with acute encephalopathy. Noted with uncontrolled hypertension and hyperglycemia. MRI Brain reveals no evidence of an acute infarction. Patient is currently feeling better. Past History Past Medical History: diabetes, hypertension Past Surgical History: No surgical history Social history: no significant social history Family history: no significant family history Medications and Allergies Allergies Allergy/AdvReac Type Severity Reaction Status Date / Time No Known Allergies Allergy Unverified 11/26/19 19:22 Home Medications Medication Instructions Recorded Confirmed Last Taken Type Acetaminophen [Acetaminophen TAB] 650 mg PO Q4H PRN tablet 12/02/19 01/24/21 Unknown Rx Metoprolol Xl [Metoprolol 50 mg PO QDAY #30 tablet 12/02/19 01/24/21 Unknown Rx SUCCINATE ER TAB] dexAMETHasone [Decadron] 6 mg PO DAILY 5 Days #5 tablet 12/02/19 01/24/21 Unknown Rx lisinopriL [Zestril TAB] 40 mg PO BID #60 tablet 12/02/19 01/24/21 Unknown Rx metFORMIN [Glucophage] 500 mg PO BID #60 tablet 12/02/19 01/24/21 Unknown Rx Active Meds: Active Medications Acetaminophen (Acetaminophen 325 Mg Tab) 650 mg PO Q4H PRN PRN Reason: Pain MILD(1-3)/Fever >101 Aspirin (Aspirin 325 Mg Tab) 325 mg PO QDAY [facility] Last Admin: 01/23/21 09:44 Dose: 325 mg Documented by: Bisacodyl (Bisacodyl 10 Mg Rect Supp) 10 mg ND QDAY PRN PRN Reason: Constipation Dexamethasone (Dexamethasone 4 Mg Tab) 6 mg PO DAILY [facility] Last Admin: 01/23/21 13:24 Dose: 6 mg Documented by: Dextrose (Dextrose 50% In Water (25gm) 50 Ml Syringe) 50 ml IV Q30MIN PRN; Protocol PRN Reason: Hypoglycemia Heparin Sodium (Porcine) (Heparin 5,000 Unit/1 Ml Vial) 5,000 unit SUB-Q Q8HR [facility] Last Admin: 01/24/21 05:09 Dose: 5,000 unit Documented by: Sodium Chloride (Nacl 0.9% 1000 Ml) 1,000 mls @ 75 mls/hr IV DIRECT [facility] Last Admin: 01/24/21 05:10 Dose: 125 mls/hr Documented by: Insulin Human Lispro (Insulin Lispro 100 Unit/Ml) 0 unit SUB-Q ACHS [facility]; Protocol Last Admin: 01/23/21 22:42 Dose: 4 unit Documented by: Lisinopril (Lisinopril 40 Mg Tab) 40 mg PO BID [facility] Last Admin: 01/23/21 22:43 Dose: 40 mg Documented by: Magnesium Hydroxide (Magnesium Hydroxide (Mom) Oral Liqd Udc) 30 ml PO Q4H PRN PRN Reason: Constipation Metformin HCl (Metformin 500 Mg Tab) 500 mg PO BIDDIAB [facility] Last Admin: 01/23/21 18:04 Dose: 500 mg Documented by: Metoclopramide HCl (Metoclopramide 10 Mg Tab) 10 mg PO Q6H PRN PRN Reason: Nausea And Vomiting Metoprolol Succinate (Metoprolol Succinate Xl 50 Mg Tab) 50 mg PO QDAY [facility] Morphine Sulfate (Morphine 2 Mg/1 Ml Inj) 2 mg IV Q4H PRN PRN Reason: Pain, Moderate (4-6) Morphine Sulfate (Morphine 4 Mg/1 Ml Inj) 4 mg IV Q4H PRN PRN Reason: Pain , Severe (7-10) Ondansetron HCl (Ondansetron 4 Mg/2 Ml Inj) 4 mg IV Q8H PRN PRN Reason: Nausea And Vomiting Last Admin: 01/23/21 03:03 Dose: 4 mg Documented by: Promethazine HCl (Promethazine 25 Mg Rect Supp) 25 mg ND Q6H PRN PRN Reason: Nausea And Vomiting Sodium Chloride (Sodium Chloride 0.9% 10 Ml Flush Syringe) 10 ml IV BID [facility] Last Admin: 01/23/21 22:43 Dose: 10 ml Documented by: Sodium Chloride (Sodium Chloride 0.9% 10 Ml Flush Syringe) 10 ml IV PRN PRN PRN Reason: LINE FLUSH Review of Systems All systems: negative (as per HPI;) Physical Examination - Vital Signs Vital Signs: Vital Signs Temp Pulse Resp BP Pulse Ox 98.5 F 96 H 15 223/96 96 01/22/21 21:45 01/22/21 21:45 01/22/21 21:45 01/22/21 21:45 01/22/21 21:45 - Physical Exam Narrative exam: Gen: nad, well-nourished; Head: normocephalic; Eyes: no gaze deviation; no ptosis; ENT: normal vocalization; CVS: warm and well-perfused; Pulm: no respiratory distress; GI: appears non-distended, protuberant; Ext: no cyanosis appreciated at distal extremities; Skin: no acute rash or hives appreciated at distal extremities; Heme: no pathologic bruising or ecchymosis appreciated at distal extremities; Neuro: alert, oriented to name, age, month, year, hospital, not hospital name, no dysarthria, no aphasia, CN 2 - PERRL, visual sandhu grossly intact, CN 3, 4, 6 - EOMI, CN 5 - facial sensation symmetric to light touch, CN 7 - facial movement symmetric, CN 8 - hearing grossly intact, CN 9, 10 - uvula midline, CN 11 - shrug symmetric, CN 12 - tongue midline; Motor - at least 4/5 in all exts; Sensory - light touch symmetric, Cerebellar - fnf /hts intact, Gait - deferred secondary to fall risk; Results - Laboratory Findings CBC and BMP: 01/24/21 05:32 01/24/21 05:32 Abnormal Lab Findings: Abnormal Labs 01/22/21 01/22/21 01/22/21 21:58 21:58 21:58 MCH Lymph % (Auto) [place] % (Auto) 9.4 H Sodium 135 L Chloride BUN Glucose 530 H* POC Glucose Lactic Acid Ammonia 24.0 L Total Creatine Kinase 450 H Albumin 3.6 L Triglycerides Lipase 230 H 01/22/21 01/22/21 01/23/21 21:58 23:34 02:07 MCH Lymph % (Auto) [place] % (Auto) Sodium Chloride BUN Glucose POC Glucose 234 H Lactic Acid 3.10 H* 3.00 H* Ammonia Total Creatine Kinase Albumin Triglycerides Lipase 01/23/21 01/23/21 01/23/21 05:11 08:55 13:13 MCH Lymph % (Auto) [place] % (Auto) Sodium Chloride BUN Glucose POC Glucose 339 H 298 H Lactic Acid 3.90 H* Ammonia Total Creatine Kinase Albumin Triglycerides Lipase 01/23/21 01/23/21 01/24/21 16:55 22:41 05:32 MCH 33 H Lymph % (Auto) 36.4 H [place] % (Auto) 9.2 H Sodium Chloride BUN Glucose POC Glucose 270 H 256 H Lactic Acid Ammonia Total Creatine Kinase Albumin Triglycerides Lipase 01/24/21 01/24/21 05:32 07:20 MCH Lymph % (Auto) [place] % (Auto) Sodium 135 L Chloride 92.9 L BUN 20 H Glucose 312 H POC Glucose 281 H Lactic Acid Ammonia Total Creatine Kinase Albumin Triglycerides 266 H Lipase Assessment and Plan 75 yo female with htn, dm, who presents with acute encephalopathy. Noted with uncontrolled hypertension and hyperglycemia. MRI Brain reveals no evidence of an acute infarction. Patient is currently feeling better. 1. Acute Metabolic Encephalopathy - correction of underlying metabolic derangements per primary team. 2. Hypertensive Urgency / Emergency - treatment per primary team. 3. DM - aim for long-term euglycemia. 4. No further acute neurologic intervention indicated at present. Noe Plascencia MD Neurology [id number]
--- NOTE | 2021-01-24 09:50 | Progress Note ---
Assessment and Plan Assessment and plan: Metabolic encephalopathy Accelerated hypertension Diabetes mellitus type 2, uncontrolled Lactic acidosis DVT prophylaxis 01/23/2021. Patient remains confused and somnolent. Patient with systolic bl ood pressure of 233. We will resume home medications of lisinopril and metoprolol. I will consider additional medications if no improvement with home medications. Will resume Glucophage for diabetes. Continue SSRI and Accu- Cheks. 01/24/2021. Neurology evaluated the patient and felt that etiology of confusion was secondary to acute metabolic encephalopathy. Patient had correction of electrolyte derangements and is back to her baseline mental status. MRI of the brain was negative. Blood pressure is much better controlled. Patient will have PT evaluation and if clear for discharge will likely discharge home later today or in a.m. History Interval history: Patient is back to her baseline. No confusion Hospitalist Physical - Constitutional Vitals: Temp Pulse Resp BP Pulse Ox 98.4 F 64 18 174/65 98 01/24/21 07:23 01/24/21 07:23 01/24/21 07:23 01/24/21 07:23 01/24/21 07:23 General appearance: Present: mild distress, well-nourished, obese - EENT Eyes: Present: PERRL, EOM intact ENT: hearing intact, clear oral mucosa, dentition normal - Neck Neck: Present: supple, normal ROM - Respiratory Respiratory effort: normal Respiratory: bilateral: CTA - Cardiovascular Rhythm: regular Heart Sounds: Present: S1 & S2. Absent: gallop, rub - Extremities Extremities: no ischemia, No edema, Full ROM - Abdominal General gastrointestinal: soft, non-tender, non-distended, normal bowel sounds - Integumentary Integumentary: Present: clear, warm, dry - Neurologic Neurologic: CNII-XII intact, moves all extremities HEART Score - HEART Score Troponin: Troponin T < 0.010 ng/mL (0.00-0.029) 01/22/21 21:58 Results - Labs CBC & Chem 7: 01/24/21 05:32 01/24/21 05:32 Labs: Laboratory Last Values WBC 7.5 K/mm3 (4.5-11.0) 01/24/21 05:32 RBC 3.68 M/mm3 (3.65-5.03) 01/24/21 05:32 Hgb 12.1 gm/dl (10.1-14.3) 01/24/21 05:32 Hct 35.2 % (30.3-42.9) 01/24/21 05:32 MCV 96 fl (79-97) 01/24/21 05:32 MCH 33 pg (28-32) H 01/24/21 05:32 MCHC 34 % (30-34) 01/24/21 05:32 RDW 14.6 % (13.2-15.2) 01/24/21 05:32 Plt Count 230 K/mm3 (140-440) 01/24/21 05:32 Lymph % (Auto) 36.4 % (13.4-35.0) H 01/24/21 05:32 [place] % (Auto) 9.2 % (0.0-7.3) H 01/24/21 05:32 Eos % (Auto) 1.8 % (0.0-4.3) 01/24/21 05:32 Baso % (Auto) 1.0 % (0.0-1.8) 01/24/21 05:32 Lymph # (Auto) 2.7 K/mm3 (1.2-5.4) 01/24/21 05:32 [place] # (Auto) 0.7 K/mm3 (0.0-0.8) 01/24/21 05:32 Eos # (Auto) 0.1 K/mm3 (0.0-0.4) 01/24/21 05:32 Baso # (Auto) 0.1 K/mm3 (0.0-0.1) 01/24/21 05:32 Seg Neutrophils % 51.6 % (40.0-70.0) 01/24/21 05:32 Seg Neutrophils # 3.9 K/mm3 (1.8-7.7) 01/24/21 05:32 PT 13.7 Sec. (12.2-14.9) 01/24/21 05:32 INR 0.95 (0.87-1.13) 01/24/21 05:32 VBG pH 7.383 (7.320-7.420) 01/22/21 21:58 Sodium 135 mmol/L (137-145) L 01/24/21 05:32 Potassium 4.9 mmol/L (3.6-5.0) 01/24/21 05:32 Chloride 92.9 mmol/L (98-107) L 01/24/21 05:32 Carbon Dioxide 25 mmol/L (22-30) 01/24/21 05:32 Anion Gap 22 mmol/L 01/24/21 05:32 BUN 20 mg/dL (7-17) H 01/24/21 05:32 Creatinine 1.0 mg/dL (0.6-1.2) 01/24/21 05:32 Estimated GFR > 60 ml/min 01/24/21 05:32 BUN/Creatinine Ratio 20 % 01/24/21 05:32 Glucose 312 mg/dL (65-100) H 01/24/21 05:32 POC Glucose 281 mg/dL (70-105) H 01/24/21 07:20 Lactic Acid 2.00 mmol/L (0.7-2.0) 01/24/21 05:32 Calcium 9.2 mg/dL (8.4-10.2) 01/24/21 05:32 Total Bilirubin 0.40 mg/dL (0.1-1.2) 01/22/21 21:58 AST 16 units/L (5-40) 01/22/21 21:58 ALT 13 units/L (7-56) 01/22/21 21:58 Alkaline Phosphatase 69 units/L (35-129) 01/22/21 21:58 Ammonia 24.0 umol/L (25-60) L 01/22/21 21:58 Total Creatine Kinase 450 units/L (30-135) H 01/22/21 21:58 CK-MB (CK-2) 3.7 ng/mL (0.0-4.0) 01/22/21 21:58 CK-MB (CK-2) Rel Index 0.8 (0-4) 01/22/21 21:58 Troponin T < 0.010 ng/mL (0.00-0.029) 01/22/21 21:58 Total Protein 7.0 g/dL (6.3-8.2) 01/22/21 21:58 Albumin 3.6 g/dL (3.9-5) L 01/22/21 21:58 Albumin/Globulin Ratio 1.1 % 01/22/21 21:58 Triglycerides 266 mg/dL (2-149) H 01/24/21 05:32 Cholesterol 174 mg/dL (50-199) 01/24/21 05:32 LDL Cholesterol Direct 84 mg/dL (50-130) 01/24/21 05:32 HDL Cholesterol 56 mg/dL (40-59) 01/24/21 05:32 Cholesterol/HDL Ratio 3.10 % 01/24/21 05:32 Lipase 230 units/L (13-60) H 01/22/21 21:58 TSH 3.100 mlU/mL (0.270-4.200) 01/22/21 21:58 Free T4 1.04 ng/dL (0.76-1.46) 01/22/21 21:58 Urine Color Colorless (Yellow) 01/23/21 Unknown Urine Turbidity Clear (Clear) 01/23/21 Unknown Urine pH 5.0 (5.0-7.0) 01/23/21 Unknown Ur Specific [place] 1.014 (1.003-1.030) 01/23/21 Unknown Urine Protein <15 mg/dl mg/dL (Negative) 01/23/21 Unknown Urine Glucose (UA) >=500 mg/dL (Negative) 01/23/21 Unknown Urine Ketones 20 mg/dL (Negative) 01/23/21 Unknown Urine Blood Sm (Negative) 01/23/21 Unknown Urine Nitrite Neg (Negative) 01/23/21 Unknown Urine Bilirubin Neg (Negative) 01/23/21 Unknown Urine Urobilinogen < 2.0 mg/dL (<2.0) 01/23/21 Unknown Ur Leukocyte Esterase Neg (Negative) 01/23/21 Unknown Urine WBC (Auto) < 1.0 /HPF (0.0-6.0) 01/23/21 Unknown Urine RBC (Auto) 2.0 /HPF (0.0-6.0) 01/23/21 Unknown Plasma/Serum Alcohol < 0.01 % (0-0.07) 01/22/21 21:58 Sanders/IV: Voiding Method Bedside Commode Active Medications - Current Medications Current Medications: Generic Name Dose Route Start Last Admin Trade Name Freq PRN Reason Stop Dose Admin Acetaminophen 650 mg 01/23/21 00:04 Acetaminophen 325 Mg Tab PO Q4H PRN Pain MILD(1-3)/Fever >101 Aspirin 325 mg 01/23/21 10:00 01/23/21 09:44 Aspirin 325 Mg Tab PO 325 mg QDAY [facility] Administration Bisacodyl 10 mg 01/23/21 00:04 Bisacodyl 10 Mg Rect Supp MO QDAY PRN Constipation Dexamethasone 6 mg 01/23/21 12:00 01/23/21 13:24 Dexamethasone 4 Mg Tab PO 6 mg DAILY [facility] Administration Dextrose 50 ml 01/23/21 00:04 Dextrose 50% In Water (25gm) 50 Ml Syringe IV Q30MIN PRN Hypoglycemia Protocol Heparin Sodium (Porcine) 5,000 unit 01/23/21 06:00 01/24/21 05:09 Heparin 5,000 Unit/1 Ml Vial SUB-Q 5,000 unit Q8HR [facility] Administration Sodium Chloride 1,000 mls @ 75 mls/hr 01/23/21 00:15 01/24/21 05:10 Nacl 0.9% 1000 Ml IV 125 mls/hr DIRECT [facility] Administration Insulin Human Lispro 0 unit 01/23/21 07:30 01/23/21 22:42 Insulin Lispro 100 Unit/Ml SUB-Q 4 unit ACHS [facility] Administration Protocol Lisinopril 40 mg 01/23/21 22:00 01/23/21 22:43 Lisinopril 40 Mg Tab PO 40 mg BID [facility] Administration Magnesium Hydroxide 30 ml 01/23/21 00:04 Magnesium Hydroxide (Mom) Oral Liqd Udc PO Q4H PRN Constipation Metformin HCl 500 mg 01/23/21 17:00 01/23/21 18:04 Metformin 500 Mg Tab PO 500 mg BIDDIAB [facility] Administration Metoclopramide HCl 10 mg 01/23/21 00:04 Metoclopramide 10 Mg Tab PO Q6H PRN Nausea And Vomiting Metoprolol Succinate 50 mg 01/24/21 10:00 Metoprolol Succinate Xl 50 Mg Tab PO QDAY [facility] Morphine Sulfate 2 mg 01/23/21 00:04 Morphine 2 Mg/1 Ml Inj IV Q4H PRN Pain, Moderate (4-6) Morphine Sulfate 4 mg 01/23/21 00:04 Morphine 4 Mg/1 Ml Inj IV Q4H PRN Pain , Severe (7-10) Ondansetron HCl 4 mg 01/23/21 00:04 01/23/21 03:03 Ondansetron 4 Mg/2 Ml Inj IV 4 mg Q8H PRN Administration Nausea And Vomiting Promethazine HCl 25 mg 01/23/21 00:04 Promethazine 25 Mg Rect Supp MO Q6H PRN Nausea And Vomiting Sodium Chloride 10 ml 01/23/21 10:00 01/23/21 22:43 Sodium Chloride 0.9% 10 Ml Flush Syringe IV 10 ml BID [facility] Administration Sodium Chloride 10 ml 01/23/21 00:04 Sodium Chloride 0.9% 10 Ml Flush Syringe IV PRN PRN LINE FLUSH Nutrition/Malnutrition Assess - Dietary Evaluation Nutrition/Malnutrition Findings: Nutrition Notes Start: 01/23/21 12:50 Freq: Status: Active Protocol: Document 01/23/21 12:50 GB (Rec: 01/23/21 13:00 GB [id number]) Nutrition Notes Need for Assessment generated from: MD Order,Education Initial or Follow up Assessment Current Diagnosis Diabetes,Hypertension Other Pertinent Diagnosis AMS, consult for diet edu Current Diet NPO Labs/Tests 01/22: glucose 530 (POC showing improvement), Na 135 Pertinent Medications D5 (PRN), NaCl 75ml/hr Height 5 ft 7 in Weight 100 kg Topmost Body Weight (kg) 61.36 BMI 34.5 Weight change and time frame No reported weight changes at admit Weight Status Obese Subjective/Other Information Per MD note 01/23: pt still confused and somnolent. Currently, pt is not a candidate for nutrition education. Healthy nutrition education thearpy can be provided when pt is more alert . Diet advance to regular once bedside swallow is passed. Percent of energy/protein needs met: 0%: NPO Burn Absent Trauma Absent GI Symptoms None Food Allergy No Skin Integrity/Comment no complications reported Current % PO Other Minimum of two criteria No #1 Nutrition Diagnosis No nutrition diagnosis at this time Comments: consult for education Etiology AMS As Evidenced by Signs and Symptoms Acutely altered labs/vitals Is patient on ventilator? No Is Patient Ambulatory and/or Out of Bed No REE-([facility]-confined to bed) 1827.348 Kcal/Kg value to use for calculation 17 Approximate Energy Requirements Using 1700 kcal/Kg Calculation Used for Recommendations Kcal/kg Additional Notes Protein 0.8-1g/kg @ 100k- 100g Fluids: 1 ml/kcal or per MD Nutrition Intervention Change Diet Order: When medically feasible: advance to regular Nutrition Support: n/a Add Supplement/Snack (indicate name/kcal n/a /protein ) Education Handouts Provided AND: Healthy Nutrition education therapy packet to be provided when pt is more alert Goal #1 Diet advanced to regular by f/ u assessment Follow-Up By: 01/26/21 Additional Comments f/u: provide general healthy nutrition therapy educaiton packet, diet advanced
--- NOTE | 2021-01-24 09:55 | Discharge Summary ---
Providers - Providers Date of Admission: 01/23/21 14:05 Date of discharge: 01/24/21 Attending physician: ALLISON JOHN 01/23/21 Consult to Physician [CONS] Routine Comment: Consulting Provider: ELI HENDRIX Physician Instructions: Reason For Exam: ALTERED MENTAL STATUS, R/O CVA 01/23/21 00:05 Consult to Dietitian/Nutrition [CONS] Routine Physician Instructions: Reason For Exam: Reason for Consult: Diet education Occupational Therapy Evaluate and Treat [CONS] Routine Comment: Reason For Exam: Neuro deficits Physical Therapy Evaluation and Treat [CONS] Routine Comment: Reason For Exam: Neuro deficits Primary care physician: BUCKLE ATTACHER Hospitalization Reason for admission: AMS Condition: Fair Hospital course: 75-year-old female with known history of hypertension and diabetes mellitus presents to the emergency room on 01/23/2021 with altered mental status. Last well-known time was at about noon. Most of the history was gotten from the ER staff as patient was unable to give any good history and family currently unavailable. Initial blood glucose was elevated at about 591. She also had elevated blood pressure of 210 systolic and low 100 in the diastolic upon arrival. She had IV labetalol and guidelines in the emergency room with some improvement in her blood pressure. Work-up in the emergency room include CT scan of the head with was unremarkable. Chest x-ray also did not reveal any acute abnormality. Labs reveals lactic acid of 3.0., Creatinine kinase of 450. The patient was admitted with diagnosis of acute metabolic encephalopathy, hypoglycemia, accelerated hypertension, diabetes mellitus type 2, uncontrolled, lactic acidosis. Hospital course: 01/23/2021. Patient remains confused and somnolent. Patient with systolic blood pressure of 233. We will resume home medications of lisinopril and metoprolol. I will consider additional medications if no improvement with home medications. Will resume Glucophage for diabetes. Continue SSRI and Accu- Cheks. 01/24/2021. Neurology evaluated the patient and felt that etiology of confusion was secondary to acute metabolic encephalopathy. Patient had correction of electrolyte derangements and is back to her baseline mental status. MRI of the brain was negative. Blood pressure is much better controlled. Patient will have PT evaluation and if clear for discharge will likely discharge home later today. Dedicated discharge time 32 minutes Disposition: HOME / SELF CARE / HOMELESS Final Discharge Diagnosis (Prints w/discharge instructions): acute metabolic encephalopathy, hypoglycemia, accelerated hypertension, diabetes mellitus type 2, uncontrolled, lactic acidosis. Core Measure Documentation - Palliative Care Palliative Care/ Comfort Measures: Not Applicable - Core Measures Any of the following diagnoses?: none Exam - Constitutional Vitals: Temp Pulse Resp BP Pulse Ox 98.4 F 64 18 174/65 98 01/24/21 07:23 01/24/21 07:23 01/24/21 07:23 01/24/21 07:23 01/24/21 07:23 General appearance: Present: no acute distress, well-nourished - EENT Eyes: Present: PERRL ENT: hearing intact, clear oral mucosa - Neck Neck: Present: supple, normal ROM - Respiratory Respiratory effort: normal Respiratory: bilateral: CTA - Cardiovascular Heart Sounds: Present: S1 & S2. Absent: rub, click - Extremities Extremities: pulses symmetrical, No edema Peripheral Pulses: within normal limits - Abdominal General gastrointestinal: Present: soft, non-tender, non-distended, normal bowel sounds Female genitourinary: Present: normal - Integumentary Integumentary: Present: clear, warm, dry - Musculoskeletal Musculoskeletal: gait normal, strength equal bilaterally - Psychiatric Psychiatric: appropriate mood/affect, intact judgment & insight - Neurologic Neurologic: CNII-XII intact, moves all extremities Plan Activity: advance as tolerated Weight Bearing Status: Weight Bear as Tolerated Diet: diabetic Follow up with: PRIMARY CAREMD [Primary Care Provider] - 3-5 Days KEYUR STEVE MD [Staff Physician] - 7 Days Prescriptions: Glimepiride [Amaryl] 2 mg PO QAM #30 Losartan [Cozaar] 100 mg PO QDAY #30 Metformin HCl [metFORMIN] 1,000 mg PO BID #60 NIFEdipine XL [Procardia Xl] 30 mg PO Q12HR #60 tab Atenolol/Chlorthalidone [Tenoretic 100-25] 1 tab PO QDAY #30
[2021-01-24] MEDS ORDERED: METOPROLOL SUCCINATE XL 50 MG TAB PO SCH (10:00)
[2021-01-24] MEDS: INSULIN LISPRO 100 UNIT/ML SUB-Q SCH ×2 (10:19→12:05)
[2021-01-24] MEDS: ASPIRIN 325 MG TAB PO SCH (10:19)
[2021-01-24] MEDS: metFORMIN 500 MG TAB PO SCH (10:20)
[2021-01-24] MEDS: LISINOPRIL 40 MG TAB PO SCH (10:21)
[2021-01-24 11:44] VITALS: BP 173/77
== END 2021-01-24 14:45 | disposition home or self-care (01) | DRG 304 ==
LOC: ED 21:27 → 4A 01-23 00:04 → OBSVTOIN 01-23 14:05 → 4A 01-23 22:40
PROVIDERS: ADMIT Internal Medicine Geriatric Medicine; ATTEND Hospitalist
DX: I16.0 Hypertensive urgency (principal); G93.41 Metabolic encephalopathy; E11.65 Type 2 diabetes mellitus with hyperglycemia; I10 Essential (primary) hypertension; E11.649 Type 2 diabetes mellitus with hypoglycemia without coma; Z20.822 Contact with and (suspected) exposure to COVID-19
CPT/HCPCS: 36415; 70450; 70551; 71045; 80048; 80053; 80061; 80320; 81001; 82140; 82550; 82553; 82805; 82962; 83690; 84439; 84443; 84484; 85025; 85610; 93005; 93306; 93880; G0378; G0480; J0360; J1644; J1815; J2405; J7030; J8540

== ENCOUNTER 2021-01-31 21:36 | Emergency (ER) | payer MEDICARE ==
--- NOTE | 2021-01-31 22:18 | Emergency Department Report ---
ED General Adult HPI - General Chief complaint: Hyperglycemia Stated complaint: HIGH BLOOD SUGAR PUI?: No Time Seen by Provider: 01/31/21 22:10 Source: patient, EMS Mode of arrival: Stretcher Limitations: No Limitations - History of Present Illness Initial comments: Patient is a 75-year-old female that presents emergency room with elevated blood sugar patient states she found her blood pressure reviewed greater than 500 and her son called EMS. Patient states she is been hospitalized in the past for hyperglycemia and DKA. Patient states she just recently started on insulin. Patient states she is taking Humalog twice a day. Patient states she is not on a nighttime long-acting insulin. Patient states she has high blood pressure and hypertension. Patient denies chest pain and shortness of breath. Patient states she is feeling feeling fatigued for the past 2 months. Patient denies recent travel. Patient denies recent international travel. Patient denies exposure to the novel coronavirus. Patient denies sick contacts. Patient denies fever and chills. Patient denies cough. Patient denies diarrhea. Patient denies coming in contact with anybody with symptoms of the novel coronavirus. -: Sudden Consistency: constant Improves with: medication Worsens with: eating Associated Symptoms: malaise. denies: confusion, chest pain, cough, diaphoresis, fever/chills, headaches, loss of appetite, nausea/vomiting, rash, seizure, shortness of breath, syncope Treatments Prior to Arrival: none - Related Data Home Medications Medication Instructions Recorded Confirmed Last Taken Citalopram [Celexa] 20 mg PO QDAY 01/24/21 01/24/21 Unknown Diclofenac 0.1% (Nf) [Voltaren 1 drops OD TID 01/24/21 01/24/21 01/22/21 (Nf)] Gabapentin 300 mg PO QDAY 01/24/21 01/24/21 Unknown Meloxicam [Mobic] 15 mg PO QDAY 01/24/21 01/24/21 Unknown Ofloxacin 0.3% [Floxin 0.3% Otic] 1 drops OD QID 01/24/21 01/24/21 01/22/21 Prednisolone Acetate/Pf 1 drop OD QID 01/24/21 01/24/21 01/22/21 [Prednisolone Acet 1% Eye Drop] Simvastatin 40 mg PO QHS 01/24/21 01/24/21 Unknown allopurinoL [Zyloprim] 300 mg PO QDAY 01/24/21 01/24/21 Unknown traZODone [Desyrel] 50 mg PO QHS 01/24/21 01/24/21 Unknown Previous Rx's Medication Instructions Recorded Last Taken Type Aspirin 325 mg PO QDAY tablet 01/24/21 Unknown Rx Atenolol/Chlorthalidone [Tenoretic 1 tab PO QDAY #30 01/24/21 Unknown Rx 100-25] Glimepiride [Amaryl] 2 mg PO QAM #30 01/24/21 Unknown Rx Losartan [Cozaar] 100 mg PO QDAY #30 01/24/21 Unknown Rx Metformin HCl [metFORMIN] 1,000 mg PO BID #60 01/24/21 Unknown Rx NIFEdipine XL [Procardia Xl] 30 mg PO Q12HR #60 tab 01/24/21 Unknown Rx dexAMETHasone [Decadron] 6 mg PO DAILY tablet 01/24/21 Unknown Rx Allergies Allergy/AdvReac Type Severity Reaction Status Date / Time lisinopril AdvReac COUGH Verified 01/24/21 09:21 ED Review of Systems ROS: Stated complaint: HIGH BLOOD SUGAR Other details as noted in HPI Constitutional: malaise. denies: chills, fever Eyes: denies: eye pain, eye discharge, vision change ENT: denies: ear pain, throat pain Respiratory: denies: cough, shortness of breath, wheezing Cardiovascular: denies: chest pain, palpitations Endocrine: no symptoms reported Gastrointestinal: denies: abdominal pain, nausea, diarrhea Genitourinary: denies: urgency, dysuria, discharge Musculoskeletal: denies: back pain, joint swelling, arthralgia Skin: denies: rash, lesions Neurological: denies: headache, weakness, paresthesias Psychiatric: denies: anxiety, depression Hematological/Lymphatic: denies: easy bleeding, easy bruising ED Past Medical Hx - Past Medical History Previous Medical History?: Yes Hx Hypertension: Yes Hx Diabetes: Yes - Surgical History Additional Surgical History: cataract - Family History Family history: no significant - Social History Smoking Status: Never Smoker Substance Use Type: None - Medications Home Medications: Home Medications Medication Instructions Recorded Confirmed Last Taken Type Aspirin 325 mg PO QDAY tablet 01/24/21 Unknown Rx Atenolol/Chlorthalidone [Tenoretic 1 tab PO QDAY #30 01/24/21 Unknown Rx 100-25] Citalopram [Celexa] 20 mg PO QDAY 01/24/21 01/24/21 Unknown History Diclofenac 0.1% (Nf) [Voltaren 1 drops OD TID 01/24/21 01/24/21 01/22/21 History (Nf)] Gabapentin 300 mg PO QDAY 01/24/21 01/24/21 Unknown History Glimepiride [Amaryl] 2 mg PO QAM #30 01/24/21 Unknown Rx Losartan [Cozaar] 100 mg PO QDAY #30 01/24/21 Unknown Rx Meloxicam [Mobic] 15 mg PO QDAY 01/24/21 01/24/21 Unknown History Metformin HCl [metFORMIN] 1,000 mg PO BID #60 01/24/21 Unknown Rx NIFEdipine XL [Procardia Xl] 30 mg PO Q12HR #60 tab 01/24/21 Unknown Rx Ofloxacin 0.3% [Floxin 0.3% Otic] 1 drops OD QID 01/24/21 01/24/21 01/22/21 History Prednisolone Acetate/Pf 1 drop OD QID 01/24/21 01/24/21 01/22/21 History [Prednisolone Acet 1% Eye Drop] Simvastatin 40 mg PO QHS 01/24/21 01/24/21 Unknown History allopurinoL [Zyloprim] 300 mg PO QDAY 01/24/21 01/24/21 Unknown History dexAMETHasone [Decadron] 6 mg PO DAILY tablet 01/24/21 Unknown Rx traZODone [Desyrel] 50 mg PO QHS 01/24/21 01/24/21 Unknown History ED Physical Exam - General Limitations: No Limitations General appearance: alert, in no apparent distress - Head Head exam: Present: atraumatic, normocephalic - Eye Eye exam: Present: normal appearance, PERRL Pupils: Present: normal accommodation - ENT ENT exam: Present: mucous membranes moist - Neck Neck exam: Present: normal inspection - Respiratory Respiratory exam: Present: normal lung sounds bilaterally. Absent: respiratory distress - Cardiovascular Cardiovascular Exam: Present: regular rate, normal rhythm. Absent: systolic murmur, diastolic murmur, rubs, gallop - GI/Abdominal GI/Abdominal exam: Present: soft, normal bowel sounds. Absent: distended, tenderness, guarding - Extremities Exam Extremities exam: Present: normal inspection - Back Exam Back exam: Present: normal inspection - Neurological Exam Neurological exam: Present: alert, oriented X3 - Psychiatric Psychiatric exam: Present: normal affect, normal mood - Skin Skin exam: Present: warm, dry, intact, normal color. Absent: rash ED Course Vital Signs 01/31/21 22:05 Temperature 97.5 F L Pulse Rate 69 Respiratory 9 L Rate Blood Pressure 136/65 [Left] O2 Sat by Pulse 98 Oximetry - Reevaluation(s) Reevaluation #1: Patient states her fatigue is better. Patient states she is feeling better. I discussed all results and clinical findings with patient. I discussed plan of care with patient. Patient agrees with plan of care. Patient is stable for discharge. Patient will be discharged home. Patient given discharge instructions. Patient voiced understanding of discharge instructions. 02/01/21 02:08 ED Medical Decision Making - Lab Data Result diagrams: 01/31/21 22:43 01/31/21 22:43 - Medical Decision Making Patient is a 75-year-old female who presents emergency room with a elevated blood sugar. Patient states her blood sugar was 500 at home. Patient blood sugar here was 416. Patient had labs done which were essentially unremarkable save for hyperglycemia and dehydration. Patient given IV fluids and 10 units of insulin. Patient's blood sugar responded well. Patient is blood sugar prior to discharge was 216. Patient does not require further emergency medical service. Patient not require inpatient service. Patient will require ou tpatient management of her diabetes. Patient encouraged to see an card brusher. Patient encouraged to follow-up with her primary care in the meantime for management of her diabetes. Patient is also recently started on insulin. I discussed all results and clinical findings with patient. I discussed plan of care with patient. Patient agrees with plan of care. Patient is stable for discharge. Patient will be discharged home. Patient given discharge instructions. Patient voiced understanding of discharge instructions. - Differential Diagnosis Hyperglycemia, DKA, dehydration, uncontrolled diabetes. Critical care attestation.: If time is entered above; I have spent that time in minutes in the direct care of this critically ill patient, excluding procedure time. ED Disposition Clinical Impression: Hyperglycemia, Dehydration Diabetes Qualifiers: Diabetes mellitus type: type 2 Diabetes mellitus [employer] insulin use: with half-way use Diabetes mellitus complication status: with other specified complication Qualified Code(s): E11.69 - Type 2 diabetes mellitus with other specified complication; Z79.4 - watermaster (current) use of insulin Disposition: 01 HOME / SELF CARE / HOMELESS Is pt being admited?: No Does the pt Need Aspirin: No Condition: Stable Instructions: Diabetes Mellitus Type 2 in Adults (ED), Type 2 Diabetes Lindsay itus, Diagnosis, Adult, Tips for Eating Away From Home If You Have Diabetes, Dehydration, Adult, [id number] Additional Instructions: Patient to follow-up with primary care in 2 to 3 days. Patient to follow-up with card brusher in 2 to 3 days. Patient to rest. Patient to increase water. Patient to eat a heart healthy diet. Patient to eat a diabetic diet. Patient to reduce calorie intake. Patient to continue all medications. Patient to take Tylenol or ibuprofen as needed for pain. Patient to return to the ER if condition worsens, changes or new symptoms arise. Referrals: PRIMARY CARE, [Primary Care Provider] - 2-3 Days DEBORAH PINON MD [Staff Physician] - 2-3 Days CHELO FITZGERALD MD [Staff Physician] - 2-3 Days SHERINE GONZALES MD [Referring] - 2-3 Days TAD GHOTRA MD [Referring] - 2-3 Days EFRAIN DUARTE MD [Referring] - 2-3 Days Time of Disposition: 02:14
[2021-01-31 23:00] LABS: Hematocrit 42.3 % (30.3-42.9); Mean Corpuscular HGB Conc 33 % (30-34); Mean Corpuscular Volume 95 fl (79-97); Platelet Count 272 K/mm3 (140-440); Red Blood Count 4.45 M/mm3 (3.65-5.03); Red Cell Distribution Width 14.2 % (13.2-15.2)
[2021-01-31] MEDS ORDERED: INSULIN REGULAR, HUMAN 100 UNITS/1 ML IV ONE (23:17)
[2021-01-31] MEDS ORDERED: SODIUM CHLORIDE 0.9% 1000 ML 1,000 ML IV ONE (23:17)
[2021-01-31 23:19] LABS: Calcium 10.4 mg/dL (8.4-10.2)
[2021-02-01 02:46] VITALS: BP 139/56
== END 2021-02-01 05:40 | disposition home or self-care (01) ==
LOC: ED 21:36
DX: E11.65 Type 2 diabetes mellitus with hyperglycemia (principal); E86.0 Dehydration; Z88.8 Allergy status to other drugs, medicaments and biological substances; I10 Essential (primary) hypertension
CPT/HCPCS: 36415; 80053; 82805; 82962; 85027; 96361; 96374; 99284; J7030; J1815